=== PATIENT | female | born 1950 | race American Indian/Alaskan Native ===

== ENCOUNTER 2018-08-08 17:09 | Emergency (ER) | payer MEDICARE, OTHER ==
[~2018-08-08] VITALS: Ht 157.5 cm; Wt 86.2 kg
[~2018-08-08 17:09] MED LIST: AMOXICILLIN500 MG PO; CALCIUM + VITA1 EACH PO; CLARITHROMYCIN500 MG PO; CRESTOR10 MG PO; FLUTICASONE PRO16 GM NAS; HYDROCHLOROTH12.5 M1 PO; LISINOPRIL40 MG PO; MAGNESIUM OXID400 MG PO; METOPROLOL TART25 MG PO; NAPROSYN500 MG PO; NORCO 5-325 TA1 EACH PO; OMEPRAZOLE20 MG PO; OXYCODONE HCL5 MG PO; PERCOCET 7.5-31 EACH PO; PROMETHAZINE HC25 M1 PO; PROTONIX40 MG PO
[2018-08-08] MEDS ORDERED: EXCEDRIN EXTRA1 EAC1 PO (17:25)
[2018-08-08] MEDS ORDERED: ANECREAM5 GM TOP (17:54)
== END 2018-08-08 18:00 | disposition home or self-care (01) ==
LOC: ED 17:09
DX: K60.2 Anal fissure, unspecified (principal); I10 Essential (primary) hypertension; Z90.49 Acquired absence of other specified parts of digestive tract; Z90.710 Acquired absence of both cervix and uterus; Z88.6 Allergy status to analgesic agent; Z79.82 Long term (current) use of aspirin; Z79.899 Other long term (current) drug therapy
CPT/HCPCS: 99283

== ENCOUNTER 2019-09-17 07:48 | Day surgery (SDC) | payer MEDICARE, OTHER ==
[~2019-09-17 07:48] MED LIST changes: +ANECREAM5 GM TOP; +ANTI-ITCH28 G2 GT; +DOK100 MG PO; +EXCEDRIN EXTRA1 EAC1 PO; +ULTRAM50 MG PO; +VISTARIL25 MG PO
[2019-09-17] MEDS ORDERED: NORCO 5-325 TA1 EACH PO (08:13)
--- NOTE | 2019-09-17 09:49 | NUR ---
09/17/19 0949 Nora Sorensen 5767-PATIENT ARRIVED TO PACU ON 2L NC LAYING LEFT LATERAL. DROWSY AROUSES TO VERBAL STIMULI ABLE TO REPOSTION SELF ON BACK ABDOMEN SOFT. PATIENT DOZES BACK TO SLEEP. RR EVEN. IVF INFUSING.
--- NOTE | 2019-09-17 10:39 | NUR ---
PT IS BACK TO DS FROM PACU. SHE IS BROUGHT OVER TO WAKE UP A LITTLE MORE BEFORE GOING HOME. SPOUSE IS AT THE BEDSIDE. CALL LIGHT WITHIN REACH. NO ADDITIONAL NEEDS.
--- NOTE | 2019-09-17 12:30 | NUR ---
1200 PT UP TO BATHROOM AND REPORTS VOIDING. 1215 VSS. DC INSTRUCTIONS GIVEN AND PT READY FOR DC. FAMILY DC IN WC ALONG WITH PT IN WC. PAPERWORK GIVEN ALL QUESTIONS ANSWERED.
--- NOTE | 2019-09-18 08:34 | OR ---
[facility] [address], [place] [address] Signed DATE OF OPERATION: 09/17/2019 SURGEON: Aysha Burroughs MD PREOPERATIVE DIAGNOSES: 1. Anal pain with rectal bleeding. 2. Left lateral rectal/anal mass. 3. CEA level 9.80. POSTOPERATIVE DIAGNOSES: 1. Left lateral ulcerated rectal mass from 1st hospital fold down to top of the anal canal. 2. 4 mm mid proximal rectal polyps x2 at 10 cm. 3. Qiwaigr-of-ulebhssv sigmoid diverticulosis. PROCEDURE: Colonoscopy with hot biopsy. ESTIMATED BLOOD LOSS: Minimal. INDICATIONS: Herlinda is a 69-year-old female, who was asked to see me in consultation. She said over last seven months starting in March 2019, she has been having anal pain and rectal bleeding. She said it is particularly concerning with bowel movements. She had been to her primary care provider and tried various conservative measures including ointments, hydrocortisone cream, preparation H, tucks, and so forth. She also felt like something was coming out of the anal canal during bowel movements. When her symptoms did improve, she was asked to see me in consultation for evaluation and colonoscopy. She told me she has never had a previous colonoscopy. To her knowledge, no one in the family has any colon cancer or polyps. With her and our medical writer in the office, we did a rectal exam. On the outside, things look fine, but I could easily palpate a large ulcerated rectal mass in the left lateral position. It is just at the top of the anal canal and I can just get my finger to the top of the rectal mass. Of course, it was friable and bled easily in the office. It does not feel fixed to the underlying structures and/or sphincter muscles. She could not tolerate any anoscopy in the office due the pain. I had explained this to Herlinda and her . I gave them a booklet on colonoscopy. We looked at colonoscopy in detail. She understands the nature of the test along with its risks including, but not limited to gas bloating, crampy abdominal pain, bleeding, perforation requiring surgery, and missed diagnosis. She understands Electronically Signed By: AYSHA BURROUGHS MD 09/18/19 0834 PATIENT NAME: HERLINDA RUBIN JOSE CRUZ OPERATIVE REPORT DATE OF : 54 REPORT #: [id number] PHYSICIAN: AYSHA BURROUGHS MD PCP: PAU VILLANUEVA REPORT IS CONFIDENTIAL AND NOT TO BE RELEASED WITHOUT AUTHORIZATION [facility] [address] [place] [id number] Signed the need to obtain pictures and biopsies of the rectal mass as well as rule out any synchronous lesions. In the meantime, we sent her CEA level and it came back high at 9.80. A CT scan of chest, abdomen, and pelvis is pending. She presents today for her colonoscopy. She is well aware of the need for IV conscious sedation. She and her had expressed understanding and wished to proceed. PROCEDURE NOTE: Herlinda was taken into our endoscopy suite and placed in the left lateral decubitus position. She was given a total of 10 mg of Versed and 175 mcg of fentanyl to cover the case. Of course, she had some pain with palpation of the left lateral rectal mass. Again, I do not perceive that it is attached to underlying structures. The adult colonoscope had been introduced and advanced under direct visualization of the camera without difficulty. She had good sphincter tone on digital rectal exam. Her prep was good. We easily reached the appendiceal orifice and the cecum itself. We took pictures throughout for photodocumentation. Again, we could easily see the appendiceal orifice and ileocecal valve. The scope was slowly withdrawn. We did find diverticula in the sigmoid colon. They were ulcwmyi-lh-imzkuacn in size, wzbchqr-ij-ckpmzwxy in number, and scattered about. There were two small 4 mm polyps near the mid upper rectum at around 10 cm. There were easily removed with a hot biopsy forceps. We retroflexed the scope and we can see the mass underneath the 1st hospital fold headed down to the anus itself. We then brought the scope back and we took multiple cold biopsies of the mass for pathologic review. Of course, it is quite friable and bled easily. The area was irrigated and suctioned out until clear. After this, the gas was suctioned out and the colonoscope removed. Herlinda tolerated the procedure quite well. RECOMMENDATIONS: I will see Herlinda back in my office in 7 to 10 days to review her results. In the meantime, we are going to order her CT scan of the chest, abdomen and pelvis. MD TIGRE Prince/FELICIANOL /[id number] cc: Pau Villanueva Electronically Signed By: AYSHA BURROUGHS MD 09/18/19 0834 PATIENT NAME: HERLINDA RUBIN [facility] OPERATIVE REPORT DATE OF : 54 REPORT #: [id number] PHYSICIAN: AYSHA BURROUGHS MD PCP: PAU VILLANUEVA REPORT IS CONFIDENTIAL AND NOT TO BE RELEASED WITHOUT AUTHORIZATION [facility] [address] [place] [address] [place], [place] [address] Signed Aysha Burroughs MD Copies: PAU VILLANUEVA ANDREW L MD ~ Electronically Signed By: AYSHA BURROUGHS MD 09/18/19 0834 PATIENT NAME: HERLINDA RUBIN JOSE CRUZ OPERATIVE REPORT DATE OF : 54 REPORT #: [id number] PHYSICIAN: AYSHA BURROUGHS MD PCP: PAU VILLANUEVA REPORT IS CONFIDENTIAL AND NOT TO BE RELEASED WITHOUT AUTHORIZATION
--- NOTE | 2019-09-19 09:22 | PATH ---
[facility] [address], [place] [address] Signed SPECIMEN(S): A RECTAL POLYP AT 10 CM SPECIMEN(S): B RECTAL MASS SPECIMEN SOURCE: A. RECTAL POLYP AT 10 CM B. RECTAL MASS CLINICAL HISTORY: Anal pain, anal mass. Post: Rectal mass, diverticulosis, polyps. MICROSCOPIC DESCRIPTION: Histologic sections of all submitted blocks are examined by light microscopy. These findings, together with the gross examination, support the pathologic diagnosis. FINAL PATHOLOGIC DIAGNOSIS: A. Rectum, polyp at 10 cm, polypectomy: - Fragments of tubular adenoma. - Negative for high-grade dysplasia or malignancy. B. Rectum, mass, biopsy: - Invasive moderately differentiated adenocarcinoma. - See comment. COMMENT: Mismatch repair (MMR) testing by IHC has been ordered and will be reported in an addendum. BRAF mutation testing may not be indicated in the absence of metastatic disease and has not been ordered. If testing is desired, please contact [facility] with prior authorization if applicable. The results were discussed with Dr. Araujo on 09/18/2019. As part of [facility]' Quality Improvement Program, this case was reviewed by another member of our pathology staff. NAL:NRT:cml:C1NR GROSS DESCRIPTION: Two specimens are received in two containers, labeled "TC." A. The specimen, labeled "TC,1," and designated on the requisition "rectal polyp at 10 cm," is received in formalin and consists of two bennett soft tissue fragments that measure 0.3 cm in greatest dimension. The specimen is entirely submitted in cassette (A1). B. The specimen, labeled "TC, 2," and designated on the requisition "rectal PATIENT NAME: MILO RUBIN PATHOLOGY DATE OF : 54 REPORT #: [id number] PHYSICIAN: SUELLEN CARBONE PCP: VEENA VILLANUEVA REPORT IS CONFIDENTIAL AND NOT TO BE RELEASED WITHOUT AUTHORIZATION [facility] [address] [address] Signed mass," is received in formalin and consists of multiple bennett-red soft tissue fragments that measure 0.4 cm in greatest dimension. The specimen is entirely submitted in cassette (B1). AT (under the direct supervision of a pathologist) The Gross Description was prepared using a voice recognition system. The report was reviewed for accuracy; however, sound-alike word errors, addition and/or deletions may occur. If there is any question about this report, please contact Client Services. PERFORMING LABORATORY: The technical component was performed by [facility], [address] [place] [address] (Predatory Animal Trapper: Virginie Biggs MD; CLIA# [id number]). [facility] [address] [place] [id number] (CLIA# [id number]). Diagnostician: Dionne Patricio MD Pathologist Electronically Signed 09/19/2019 Copies: ~ PATIENT NAME: MILO RUBIN PATHOLOGY DATE OF : 54 REPORT #: [id number] PHYSICIAN: SUELLEN CARBONE PCP: VEENA VILLANUEVA REPORT IS CONFIDENTIAL AND NOT TO BE RELEASED WITHOUT AUTHORIZATION
== END 2019-09-17 12:15 | disposition home or self-care (01) ==
LOC: DS 07:48 → OPS 07:48 → DS 09:00 → OPS 09:00
PROVIDERS: Colon & Rectal Surgery
PROC: 0DBP8ZZ Excision of Rectum, Via Natural or Artificial Opening Endoscopic (ICD-10-PCS; principal; 2019-09-17 09:00)
DX: C20 Malignant neoplasm of rectum (principal); K57.30 Diverticulosis of large intestine without perforation or abscess without bleeding; K62.6 Ulcer of anus and rectum; I12.9 Hypertensive chronic kidney disease with stage 1 through stage 4 chronic kidney disease, or unspecified chronic kidney disease; N18.3 Chronic kidney disease, stage 3 (moderate); E78.5 Hyperlipidemia, unspecified; K21.9 Gastro-esophageal reflux disease without esophagitis; E66.01 Morbid (severe) obesity due to excess calories; Z88.6 Allergy status to analgesic agent; Z91.048 Other nonmedicinal substance allergy status; Z79.82 Long term (current) use of aspirin; Z79.899 Other long term (current) drug therapy; Z68.34 Body mass index [BMI] 34.0-34.9, adult
CPT/HCPCS: 99153; G0500; J2250; J3010; J7121

== ENCOUNTER 2020-02-02 15:02 | Emergency (ER) | payer MEDICARE, OTHER ==
[~2020-02-02] VITALS: Ht 157.5 cm; Wt 71.2 kg
--- OUTSIDE RECORDS SUMMARY | ~2020-02-02 | XMS | Encounter Summary ---
Demographics + + + | Address | [address] | | | [place] [address] | + + + | Home Phone | | + + + | Preferred Language | Unknown | + + + | Marital Status | Single | + + + | Pentecostalism Affiliation | 1041 | + + + | Race | Unknown | + + + | Ethnic Group | Unknown | + + + Author + + + | Author | [facility] | | | and [place]agarana | + + + | Organization | [facility] | | | and [place] | + + + | Address | Unknown | + + + | Phone | Unavailable | + + + Support + + +---------+ + | Name | Relationship | Address | Phone | + + +---------+ + | Tonio Nichols | ECON | Unknown | | + + +---------+ + | Cristina Medeiros | ECON | Unknown | | + + +---------+ + Care Team Providers + +------+ + | Care Ship Wirer Name | Role | Phone | + +------+ + | Juvenal Delgado PA-C | PCP | | + +------+ + Reason for Visit + + + | Reason | Comments | + + + | Care Coordination | Oncology Nurse Navigation | + + + Encounter Details +--------+ + + + + | Date | Type | Department | Care Team | Description | +--------+ + + + + | 10/15/ | Navigation | [facility] | Valery Allred | | | 2020 | Services | HEMATOLOGY AND | CHELI [facility] | | | | | ONCOLOGY [address] | | | | | | [address] | | | | | | [place] | | | | | | [address] | | | | | | [phone] | | | +--------+ + + + + Social History + +-------+ +--------+------+ | Tobacco Use | Types | Packs/Day | Years | Date | | | | | Used | | + +-------+ +--------+------+ | Current Every Day | | | | | | Smoker | | | | | + +-------+ +--------+------+ + +---+---+---+ | Smokeless Tobacco: | | | | | Never Used | | | | + +---+---+---+ + + +---------+ + | Alcohol Use | Drinks/Week | oz/Week | Comments | + + +---------+ + | Not Currently | | | | + + +---------+ + + + + | Sex Assigned at | Date Recorded | | | | + + + | Not on file | | + + + documented as of this encounter Progress Valery Shea RN - 10/16/2019 2:10 PM PDTInitial Navigation Consult 10/16/2019 Background/ Assessment: Herlinda is a 69 y.o. year old female with diagnosis of rectal cance r. Met with Herlinda and her Tonio today to introduce myself and my role as oncology nurse navigator. Current living situation: pt lives with her spouse in [place], [place] area. Emotional assessment: patient is tearful today, states this is mostly related to her discom fort from her recent rectal exam. Provided her today with resource material on colorectal cancer ([employer] Answers Colorectal Can cer by [employer].net), treatment pathway, [facility] newsletter and community res ources available, as well as local support group information. Education: Intro to ONN role and support services available, reinforcement of education ma terials, staging studies, and treatment plan. Patient was able to accurately verbalize unde rstanding of the education given today. Treatment, Treatment team: Surgeon is Dr Yun, medical oncologist Dr Huston, radi ation oncologist Dr Richard Calderon, despatch clerk Valery Allred, RN, OCN. Support systems: spouse. Patients urgent care technician is Tonio. Barriers and needs: education. ONN plan: Follow up with coding coordinator at the [facility] to determine if MRI is authorized. Add patient to tumor conference discussion after MRI has been completed. All questions were answered to her satisfaction. Provided patient with my direct contact i nformation and encouraged her to call should she have questions or further navigation needs. VIRGINIA CouchN, RN, OCN Colorectal Oncology Nurse Navigator documented in thi s encounter Plan of Treatment Not on filedocumented as of this encounter Visit Diagnoses Not on filedocumented in this encounter"
--- OUTSIDE RECORDS SUMMARY | ~2020-02-02 | XMS | Encounter Summary ---
Demographics + + + | Address | [address] | | | [place] [address] | + + + | Home Phone | | + + + | Preferred Language | Unknown | + + + | Marital Status | Single | + + + | Baptist Affiliation | 1041 | + + + | Race | Unknown | + + + | Ethnic Group | Unknown | + + + Author + + + | Author | [facility] | | | and Sagarana | + + + | Organization | [facility] | | | and Sagarana [...] Team Providers + +------+ + | Care Banking Attorney Name | Role | Phone | + +------+ + | Juvenal Delgado PA-C | PCP | | + +------+ + Reason for Visit +--------+--------+ + | Reason | Onset | Comments | | | Date | | +--------+--------+ + | Other | 10/10/ | imaging/prep | | | 2020 | | +--------+--------+ + Encounter Details +--------+ + + + + | Date | Type | Department | Care Team | Description | +--------+ + + + + | 10/10/ | Telephone | [facility] | Chandrika Baumann, | Other (imaging/prep) | | 2020 | | GENERAL SURGERY [address] | Rubber Compounder Mixer | | | | | [address] | | | | | | [place], [place] | | | | | | [address] | | | | | | [phone] | | | +--------+ + + + + Social History + +-------+ +--------+------+ | Tobacco Use | Types | Packs/Day | Years | Date | | | | | Used | | + +-------+ +--------+------+ | Never Assessed | | | | | + +-------+ +--------+------+ + + + | Sex Assigned at | Date Recorded | | | | + + + | Not on file | | + + + documented as of this encounter Miscellaneous Notes Telephone Encounter - Chandrika Baumann, Rubber Compounder Mixer - 10/11/2019 2:[address] aced to patient regarding MRI order and prep for upcoming consultation with Dr. Hurley. I nformed patient that she has an MRI ordered and that prior to consultation she will need to administer 2 fleets enemas for exam. Patient states she will have to call me back after appointment because she is driving. Number to clinic given. Call was ended. documented in this encounter Plan of Treatment Not on filedocumented as of this encounter Visit Diagnoses Not on filedocumented in this encounter"
--- OUTSIDE RECORDS SUMMARY | ~2020-02-02 | XMS | Encounter Summary ---
Demographics + + + | Address | [address] | | | [place] [address] | + + + | Home Phone | | + + + | Preferred Language | Unknown | + + + | Marital Status | Single | + + + | Adventism Affiliation | 1041 | + + + | Race | Unknown | + + + | Ethnic Group | Unknown | + + + Author + + + | Author | [facility] | | | and Sagarana | + + + | Organization | [facility] | | | and Sagarana | [...] Team Providers + +------+ + | Care Hand Tire Trimmer Name | Role | Phone | + +------+ + | Juvenal Delgado PA-C | PCP | | + +------+ + Reason for Visit + +--------+ + | Reason | Onset | Comments | | | Date | | + +--------+ + | Care Coordination | 10/15/ | Oncology Nurse Navigation | | | 2020 | | + +--------+ + Encounter Details +--------+ + + + + | Date | Type | Department | Care Team | Description | +--------+ + + + + | 10/15/ | Telephone | [facility] | Ze Allred | Care Coordination | | 2020 | | HEMATOLOGY AND | R, RN | (Oncology Nurse | | | | ONCOLOGY [address] | | Navigation) | | | | [address] | | | | | | [place] | | | | | | [address] | | | | | | [phone] | | | +--------+ + + + [...] this encounter Miscellaneous Notes Telephone Encounter - Ze Allred, RN - 10/16/2019 3:52 PM PDTCR-ONN contacted ulices cotter to let her know I spoke with authorization department and they informed that Xuan sanchez has now authorized the MRI. Pt provided with central scheduling number to get that schedu led, encouraged her to call me should she have any difficulties, to which she expressed grat itude and understanding. ZE ALLRED BSN, RN, OCN Colorectal Oncology Nurse Navigator documented in thi s encounter Plan of Treatment Not on filedocumented as of this encounter Visit Diagnoses Not on filedocumented in this encounter"
--- OUTSIDE RECORDS SUMMARY | ~2020-02-02 | XMS | Encounter Summary ---
Demographics + + + | Address | [address] | | | [place] [address] | + + + | Home Phone | | + + + | Preferred Language | Unknown | + + + | Marital Status | Single | + + + | Muslim Affiliation | 1041 | + + + | Race | Unknown | + + + | Ethnic Group | Unknown | + + + Author + + + | Author | [facility] | | | and Sagarana | + + + | Organization | [facility] | | | and Sagarana [...] Team Providers + +------+ + | Care Coordinator Hotels Name | Role | Phone | + +------+ + | Pau Salvador PA-C | PCP | | + +------+ + Encounter Details +--------+ + + + + | Date | Type | Department | Care Team | Description | +--------+ + + + + | 11/12/ | Documentati | [facility] | Ibis, Chandrika Ellis, | | | 2019 | on | GENERAL SURGERY [address] | Database Marketing Manager | | | | | [address] | | | | | | [place], [place] | | | | | | [address] | | | | | | [phone] | | | +--------+ + + + [...] + documented as of this encounter Progress Chandrika Taylor, Database Marketing Manager - 11/13/2019 4:09 PM PDTNAPRC Letter sent to Dr. Sarmad mccarthy and Dr. Calderon via fax. Fax confirmation received. documented in this encounter Plan of Treatment Not on filedocumented as of this encounter Visit Diagnoses Not on filedocumented in this encounter"
--- OUTSIDE RECORDS SUMMARY | ~2020-02-02 | XMS | Encounter Summary ---
Demographics + + + | Address | [address] | | | [place] [address] | + + + | Home Phone | | + + + | Preferred Language | Unknown | + + + | Marital Status | Single | + + + | Judaism Affiliation | 1041 | + + + | Race | Unknown | + + + | Ethnic Group | Unknown | + + + Author + + + | Author | [facility] | | | and [place] | + + + | Organization | [facility] | | | and [...] Team Providers + +------+ + | Care Security Shift Manager Name | Role | Phone | + +------+ + | Juvenal Delgado PA-C | PCP | | + +------+ + Reason for Visit + +--------+ + | Reason | Onset | Comments | | | Date | | + +--------+ + | Referral | 10/03/ | | | | 2020 | | + +--------+ + | Other | 10/03/ | Returned Call | | | 2019 | | + +--------+ + Encounter Details +--------+ + + + + | Date | Type | Department | Care Team | Description | +--------+ + + + + | 10/03/ | Telephone | [facility] | Dickson Hurley, | Referral; Other | | 2020 | | GENERAL SURGERY [address] | MD [address] | (Returned Call ) | | | | [address] | [address] | | | | | [place], [place] | [place] [address] | | | | | [address] | [phone] | | | | | [phone] | | | +--------+ + + + [...] this encounter Miscellaneous Notes Telephone Encounter - Ramya Tay - 10/10/2019 2:45 PM PDTSpoke with patient and sc heduled her with Dr Hurley on 10/16/2019.Electronically signed by Ramya Tay at 08/2019 2:45 PM PDTTelephone Encounter - Ramya Valladares - 10/10/2019 2:24 PM PDTT eresa, is calling again for Referral and Other (Returned Call ) and would like a call back. Additional Call Details: Requesting call back to schedule from referral. elephone Ramya Swartz - 10/10/2019 11:08 AM PDTTeresa, is returning call for Referr al and Other (Returned Call ) and would like a call back. Additional Call Details: Requesting to speak with Ramya or Aicha regarding scheduling. If the call back is today please call after 3pm elephone Encoun ter - Ramya Tay - 10/07/2019 4:31 PM PDTSpoke with patient and she stated she alre michelle made an appt with Dr Huston at [facility]. She has an appt with Dr Araujo on and will speak with him to determine if she should still see Dr Hurley or if she shou ld see Dr Huston. elephone Encounter - Debra Tyson - 10/04/2019 3:36 PM PDTTeresa, is returning call f or Referral and Other (Returned Call ) and would like a call back. Additional Call Details: Returning Call, can be reached at [phone] elephone Encounter - Nany Shearer I - 10/04/2019 1:37 PM PDTTeresa, is calling regarding Referral and would like a call back. Additional Call Details: Schedule from new referral. Call back on home number listed. Smith paul call back at: [phone] If this is a symptom based call, was patient offered triage? Not Applicable If this is a symptom based call and you were unable to immediately transfer the call to a p michaela distribution supervisor was caller made aware that if at any time she feels it is an emergency they sh ould call 911 or go to the nearest emergency room? not applicable documented in this encounter Plan of Treatment Not on filedocumented as of this encounter Visit Diagnoses Not on filedocumented in this encounter"
--- OUTSIDE RECORDS SUMMARY | ~2020-02-02 | XMS | Encounter Summary ---
Demographics + + + | Address | [address] | | | [place] [address] | + + + | Home Phone | | + + + | Preferred Language | Unknown | + + + | Marital Status | Single | + + + | Mandaeism Affiliation | 1041 | + + + | Race | Unknown | + + + | Ethnic Group | Unknown | + + + Author + + + | Author | [facility] | | | and Sagarana | + + + | Organization | [facility] | | | and Sagarana [...] Team Providers + +------+ + | Care Environmental Systems Coordinator Name | Role | Phone | + +------+ + | Juvenal Delgado PA-C | PCP | | + +------+ + Reason for Referral Diagnostic/Screening (Urgent) +--------+--------+ + + + + | Status | Reason | Specialty | Diagnoses / | Referred By | Referred To | | | | | Procedures | Contact | Contact | +--------+--------+ + + + + | Closed | | Radiology | Diagnoses | [facility] | | | | | Rectal | Surgery | [address] | | | | | cancer (HCC) | [address] | | | | | Procedures | [address] | | | | | MRI Pelvis | [place], | [place], [place] | | | | | wo Contrast | [place] | [address] | | | | | | [address] | Phone: | | | | | | Phone: | [phone] | | | | | | [phone] | Fax: | | | | | | Fax: | [phone] | | | | | | [phone] | | +--------+--------+ + + + + Encounter Details +--------+ + + + + | Date | Type | Department | Care Team | Description | +--------+ + + + + | 10/10/ | Orders Only | [facility] | Valery Allred | Rectal cancer (HCC) | | 2020 | | GENERAL SURGERY [address] | R, RN | | | | | [address] | | | | | | [facility] [place] | | | | | | [address] | | | | | | [phone] | | | +--------+ + + + [...] + + documented as of this encounter Plan of Treatment Not on filedocumented as of this encounter Results MRI Pelvis wo Contrast (10/28/2019 10:46 AM PDT) + + | Specimen | + + | | + + + + + | Impressions | Performed At | + + + | MRI rectal cancer T category is: T4. There appears to be | [facility] | | involvement of the levator ani musculature. Maximum EMD of invasion | | | is: 12 mm Minimum tumor to MRF distance is: 0 mm Low rectal tumor | | | component: Yes Mesorectal nodes/tumor deposits: Suspicious. Please | | | note that there is a prominent lymph node seen posterior to the left | | | external iliac vessels measuring 8 mm x 7 mm in size, potentially | | | reflecting metastatic disease, but difficult to confirm on the | | | current examination. EMVI: Positive Extramesorectal nodes: | | | Suspicious Comment MRI stage: T4. N2. Signed by: Yeimy Ocampo | | Abelardo Buchanan Sign Date/Time: 10/28/2019 11:14 AM | | + + + + + + | Narrative | Performed At | + + + | MRI PELVIS WITHOUT CONTRAST CLINICAL INFORMATION: Rectal | [facility] | | cancer staging. COMPARISON: None PROCEDURE: Image quality is | | | Adequate. Magnet: 1.5T and sequences . Multiplanar, multisequence | | | MRI of the pelvis without contrast utilizing high resolution T2 and | | | diffusion weighted imaging. FINDINGS: TUMOR LOCATION AND | | | FEATURES: Tumor Location (from anal verge): Mid and lower rectum | | | Anal verge to distal tumor margin: 2.9 cm. Tumor at or below the | | | puborectalis sling: Uncertain Distance of lowest extent of tumor from | | | top of anal sphincter: 0 cm. Relationship to the anterior peritoneal | | | reflection: Below. Craniocaudal length of the tumor: 6.1 cm. Clock | | | face of tumor: 12 o' clock to 12 o' clock | | | Polypoid/Annular/Semi-annular: Annular Mucinous: No EXTRAMURAL | | | DEPTH OF INVASION AND MR T-CATEGORY: Extramural depth of invasion | | | (Use 0mm for T1 or T2 tumour): 12 mm. T category: T4 There appears to | | | be invasion of the levator ani along the left and posterior aspect. | | | For low rectal tumors (maximum tumor depth at or below the | | | puborectalis sling): No definite extension of the tumor seen below | | | the level of the puborectalis. RELATIONSHIP OF THE TUMOR TO | | | MESORECTAL FASCIA (MRF) Shortest distance of the definitive tumour | | | border to the MRF is: 0 mm at approximately 4 o'clock. Are there any | | | tumour spiculations closer to the MRF? No EXTRAMURAL VENOUS | | | INVASION Extramural Venous Invasion (EMVI): Positive. MESORECTAL | | | LYMPH NODES AND TUMOUR DEPOSITS Any suspicious mesorectal lymph | | | nodes/tumor deposits: Yes. The abnormal lymph nodes appear to be | | | located at, and above the level of the tumor. For example Largest | | | lymph node is located above the level of the tumor at 5 o'clock | | | position on series 7, image 15 measuring 1.7 cm x 1.3 cm. Is the MONTRELL | | | node station in the field of view: No EXTRAMESORECTAL LYMPH NODES | | | Any suspicious extramesorectal lymph nodes: Yes. Extra mesorectal | | | lymph node seen at the level of the mid rectum, at 3 o'clock | | | position, abutting the left lateral pelvic sidewall on series 7, | | | image 22 measuring 1 cm x 0.9 cm. There is a prominent lymph node | | | seen posterior to the left external iliac vessels on series 7, image | | | 13 measuring 8 mm x 7 mm in size. OTHER FINDINGS: Urinary bladder | | | appears to be decompressed. No dilated bowel loops seen. Colonic | | | diverticulosis noted. | | + + + + + | Procedure Note | + + | David, Rad Results In 10/28/2019 11:17 AM PDT | | MRI PELVIS WITHOUT CONTRAST | | | | CLINICAL INFORMATION: | | Rectal cancer staging. | | | | COMPARISON: | | None | | | | PROCEDURE: | | Image quality is Adequate. | | Magnet: 1.5T and sequences . | | Multiplanar, multisequence MRI of the pelvis without contrast utilizing | | high resolution T2 and diffusion weighted imaging. | | | | FINDINGS: | | TUMOR LOCATION AND FEATURES: | | Tumor Location (from anal verge): Mid and lower rectum | | Anal verge to distal tumor margin: 2.9 cm. | | Tumor at or below the puborectalis sling: Uncertain | | Distance of lowest extent of tumor from top of anal sphincter: 0 cm. | | Relationship to the anterior peritoneal reflection: Below. | | Craniocaudal length of the tumor: 6.1 cm. | | Clock face of tumor: 12 o' clock to 12 o' clock | | Polypoid/Annular/Semi-annular: Annular | | Mucinous: No | | | | EXTRAMURAL DEPTH OF INVASION AND MR T-CATEGORY: | | Extramural depth of invasion (Use 0mm for T1 or T2 tumour): 12 mm. | | T category: T4 There appears to be invasion of the levator ani along | | the left and posterior aspect. | | For low rectal tumors (maximum tumor depth at or below the puborectalis | | sling): No definite extension of the tumor seen below the level of the | | puborectalis. | | | | RELATIONSHIP OF THE TUMOR TO MESORECTAL FASCIA (MRF) | | Shortest distance of the definitive tumour border to the MRF is: 0 mm | | at approximately 4 o'clock. | | Are there any tumour spiculations closer to the MRF? No | | | | EXTRAMURAL VENOUS INVASION | | Extramural Venous Invasion (EMVI): Positive. | | | | MESORECTAL LYMPH NODES AND TUMOUR DEPOSITS | | Any suspicious mesorectal lymph nodes/tumor deposits: Yes. The abnormal | | lymph nodes appear to be located at, and above the level of the tumor. | | For example | | Largest lymph node is located above the level of the tumor at 5 o'clock | | position on series 7, image 15 measuring 1.7 cm x 1.3 cm. | | Is the MONTRELL node station in the field of view: No | | | | EXTRAMESORECTAL LYMPH NODES | | Any suspicious extramesorectal lymph nodes: Yes. | | Extra mesorectal lymph node seen at the level of the mid rectum, at 3 | | o'clock position, abutting the left lateral pelvic sidewall on series | | 7, image 22 measuring 1 cm x 0.9 cm. | | There is a prominent lymph node seen posterior to the left external | | iliac vessels on series 7, image 13 measuring 8 mm x 7 mm in size. | | | | OTHER FINDINGS: | | Urinary bladder appears to be decompressed. No dilated bowel loops | | seen. Colonic diverticulosis noted. | | | | IMPRESSION: | | MRI rectal cancer T category is: T4. There appears to be involvement | | of the levator ani musculature. | | Maximum EMD of invasion is: 12 mm | | Minimum tumor to MRF distance is: 0 mm | | Low rectal tumor component: Yes | | Mesorectal nodes/tumor deposits: Suspicious. Please note that there is | | a prominent lymph node seen posterior to the left external iliac | | vessels measuring 8 mm x 7 mm in size, potentially reflecting | | metastatic disease, but difficult to confirm on the current examination. | | EMVI: Positive | | Extramesorectal nodes: Suspicious Comment | | MRI stage: T4. N2. | | | | | | | | Signed by: Chanel Ocampo, Abelardo | | Sign Date/Time: 10/28/2019 11:14 AM | + + + +---------+ + + | Performing | Address | City/State/Zipcode | Phone Number | | Organization | | | | + +---------+ + + | [facility] | | | | + +---------+ + + documented in this encounter Visit Diagnoses + + | Diagnosis | + + | Rectal cancer (HCC) Malignant neoplasm of rectum | + + documented in this encounter"
--- OUTSIDE RECORDS SUMMARY | ~2020-02-02 | XMS | Encounter Summary ---
Demographics + + + | Address | [address] | | | [place] [address] | + + + | Home Phone | | + + + | Preferred Language | Unknown | + + + | Marital Status | Single | + + + | Temple Affiliation | 1041 | + + + | Race | Unknown | + + + | Ethnic Group | Unknown | + + + Author + + + | Author | [facility] | | | and Sagarana | + + + | Organization | [facility] | | | and Sagarana [...] Team Providers + +------+ + | Care Service Center Representative Name | Role | Phone | + +------+ + | Juvenal Delgado PA-C | PCP | | + +------+ + Encounter Details +--------+ + + + + | Date | Type | Department | Care Team | Description | +--------+ + + + + | 02/14/ | Abstract | [facility] | Cata Valdes | | | 2012 | | NEPHROLOGY [address] | M, DO [address] | | | | | [address] | [address] [place] | | | | | [place], [place] | [place] [address] | | | | | [address] | [phone] | | | | | [phone] | | | +--------+ + + + [...]
--- OUTSIDE RECORDS SUMMARY | ~2020-02-02 | XMS | Clinical Summary ---
Demographics + + + | Address | [address] | | | [place] [address] | + + + | Home Phone | | + + + | Preferred Language | Unknown | + + + | Marital Status | Single | + + + | Christian Affiliation | 1041 | + + + | Race | Unknown | + + + | Ethnic Group | Unknown | + + + Author + + + | Author | [facility] | | | and Sagarana | + + + | Organization | [facility] | | | and Sagarana [...] Team Providers + +------+ + | Care Centrifugal Drier Operator Name | Role | Phone | + +------+ + | Pau Salvador PA-C | PCP | | + +------+ + Allergies + + + + + + | Active Allergy | Reactions | Severity | Noted | Comments | | | | | Date | | + + + + + + | Adhesive & Tape | Sensitivity | | 09/09/19 | | | | | | 16 | | + + + + + + Medications + + + +---------+------+------+-------+ | Medication | Sig | Dispensed | Refills | Star | End | Statu | | | | | | t | Date | s | | | | | | Date | | | + + + +---------+------+------+-------+ | metoprolol | Take 25 mg by mouth | | 0 | | | Activ | | tartrate (LOPRESSOR) | 2 times daily. | | | | | e | | 25 mg tablet | | | | | | | + + + +---------+------+------+-------+ | lisinopril | Take 40 mg by mouth | | 0 | | | Activ | | (PRINIVIL,ZESTRIL) | Daily. | | | | | e | | 40 MG tablet | | | | | | | + + + +---------+------+------+-------+ | | Take 25 mg by mouth | | 0 | | | Activ | | hydrochlorothiazide | Daily. | | | | | e | | 25 mg tablet | | | | | | | + + + +---------+------+------+-------+ | omeprazole | Take 40 mg by mouth. | | 0 | | | Activ | | (PRILOSEC) 40 MG | | | | | | e | | capsule | | | | | | | + + + +---------+------+------+-------+ | oxyCODONE | Take 5 mg by mouth | | 0 | | | Activ | | (ROXICODONE) 5 mg | every 4 hours as | | | | | e | | tablet | needed. | | | | | | + + + +---------+------+------+-------+ | lisinopril | Take 5 mg by mouth. | | 0 | | | Activ | | (RAMIREZ MORRISSEY) | | | | | | e | | 5 mg tablet | | | | | | | + + + +---------+------+------+-------+ Active Problems + + + | Problem | Noted Date | + + + | Rectal cancer | 10/11/2019 | + + + Encounters +--------+ + + + + | Date | Type | Specialty | Care Team | Description | +--------+ + + + + | 11/12/ | Documentati | General Surgery | Chandrika Baumann, | | | 2019 | on | | Weight Control Engineer | | +--------+ + + + + from Last 3 Months Family History + +------+ + + | Relation | Name | Status | Comments | + +------+ + + | Father | | | | + +------+ + + | Mother | | | | + +------+ + + Social History + +-------+ +--------+------+ [...] on file | | + + + Last Filed Vital Signs + + + + + | Vital Sign | Reading | Time Taken | Comments | + + + + + | Blood Pressure | 120/78 | 10/16/2019 11:14 AM | | | | | PDT | | + + + + + | Pulse | 88 | 10/16/2019 11:14 AM | | | | | PDT | | + + + + + | Temperature | 36.6 C (97.9 F) | 10/16/2019 11:14 AM | | | | | PDT | | + + + + + | Respiratory Rate | 16 | 10/16/2019 11:14 AM | | | | | PDT | | + + + + + | Oxygen Saturation | - | - | | + + + + + | Inhaled Oxygen | - | - | | | Concentration | | | | + + + + + | Weight | 72.1 kg (159 lb) | 10/16/2019 11:14 AM | | | | | PDT | | + + + + + | Height | 157.5 cm (5' 2") | 10/16/2019 11:14 AM | | | | | PDT | | + + + + + | Body Mass Index | 29.08 | 10/16/2019 11:14 AM | | | | | PDT | | + + + + + Plan of Treatment + + + + + | Health Maintenance | Due Date | Last | Comments | | | | Done | | + + + + + | Hepatitis C | | | | | Screening | 2 | | | + + + + + | Medication | | | | | Management | 2 | | | + + + + + | Vaccine: | | 03/02/20 | | | Dtap/Tdap/Td (1 - | 1 | 17, | | | Tdap) | | 06/29/20 | | | | | 06, | | | | | 05/29/19 | | | | | 96 | | + + + + + | Colorectal Cancer | | | | | Screening | 2 | | | | (Colonoscopy) | | | | + + + + + | Vaccine: Zoster (1 | | | | | of 2) | 2 | | | + + + + + | Breast Cancer | | | | | Screening | 7 | | | + + + + + | Med Mgmt: Cr | | 02/07/20 | | | | 4 | 13, | | | | | 02/07/20 | | | | | 13, | | | | | 02/04/20 | | | | | 13, | | | | | Addition | | | | | al | | | | | history | | | | | exists | | + + + + + | Med Mgmt: K | | 02/07/20 | | | | 4 | 13, | | | | | 02/04/20 | | | | | 13, | | | | | 02/03/20 | | | | | 13, | | | | | Addition | | | | | al | | | | | history | | | | | exists | | + + + + + | Med Mgmt: Na | | 02/07/20 | | | | 4 | 13, | | | | | 02/04/20 | | | | | 13, | | | | | 02/03/20 | | | | | 13, | | | | | Addition | | | | | al | | | | | history | | | | | exists | | + + + + + | Vaccine: | | | | | Pneumococcal 65+ (1 | 7 | | | | of 1 - PPSV23) | | | | + + + + + | Adult Annual | | | | | Wellness Visit | 0 | | | + + + + + | Vaccine: Influenza | | 03/20/20 | | | (#1) | 0 | 18, | | | | | 06/15/20 | | | | | 16, | | | | | 04/03/20 | | | | | 15, | | | | | Addition | | | | | al | | | | | history | | | | | exists | | + + + + + Results Not on filefrom Last 3 Months Insurance + +--------+ +--------+ +---------+--------+ | Payer | Benefi | Subscriber | Effect | Phone | Address | Type | | | t Plan | ID | jh | | | | | | / | | Dates | | | | | | Group | | | | | | + +--------+ +--------+ +---------+--------+ | MEDICARE | MEDICA | [id number] | 01/08/20 | [phone] | | Medica | | | RE | | 17-Pre | 5 | | re | | | PART A | | sent | | | | | | AND B | | | | | | + +--------+ +--------+ +---------+--------+ | MEDICARE | MEDICA | [id number] | 01/08/20 | [phone] | | Medica | | | RE | | 17-Pre | 5 | | re | | | PART A | | sent | | | | | | AND B | | | | | | + +--------+ +--------+ +---------+--------+ | [facility] [facility] | [employer] | [id number] | | | | Indemn | | SERVICE | YELLOW | | 013-Pr | | | ity | | | HAWK | | esent | | | | + +--------+ +--------+ +---------+--------+ + +--------+ +--------+ + + | Guarantor Name | Accoun | Relation to | Date | Phone | Billing Address | | | t Type | Patient | of | | | | | | | | | | + +--------+ +--------+ + + | Herlinda Hernandez | Person | Self | [birth year] | [address] | | | al/Fam | | 1949 | [phone] | [place] [address] | | | oscar | | | 1 (Home) | | + +--------+ +--------+ + + | Herlinda Hernandez | Person | Self | [birth year] | [address] | | | al/Fam | | 1949 | [phone] | [place] [address] | | | oscar | | | 1 (Home) | | + +--------+ +--------+ + + Advance Directives + + + + + | Type | Date Recorded | Patient | Explanation | | | | Internal Medicine Doctor | | + + + + + | Power of | | | | | Raw Silk Grader | | | | + + + + + | Advance | | | | | Directive | | | | + + + + +
--- OUTSIDE RECORDS SUMMARY | ~2020-02-02 | XMS | Encounter Summary ---
Demographics + + + | Address | [address] | | | [place] [address] | + + + | Home Phone | | + + + | Preferred Language | Unknown | + + + | Marital Status | Single | + + + | Yarsanism Affiliation | [id number] | + + + | Race | Unknown | + + + | Ethnic Group | Unknown | + + + Author + + + | Author | [facility] | | | and Sagarana | + + + | Organization | [facility] | | | and [...] Team Providers + +------+ + | Care Skein Washer Name | Role | Phone | + +------+ + | Juvenal Delgado PA-C | PCP | | + +------+ + Reason for Visit Evaluate & Treat (Urgent) + +--------+ + + + + | Status | Reason | Specialty | Diagnoses / | Referred By | Referred To | | | | | Procedures | Contact | Contact | + +--------+ + + + + | Authorized | | Colon and | Diagnoses | Van, | Mei, | | | | Rectal | Rectal | Victor Manuel Ash, | Dickson Liao MD | | | | Surgery / | cancer | [address] | | | General | | [address] | [address] | | | | Surgery | | [place], [address] | | | | | | [place] | [place], [place] | | | | | | [address] | [address] Phone: | | | | | | Phone: | [phone] | | | | | | [phone] | Fax: | | | | | | Fax: | [phone] | | | | | | [phone] | | + +--------+ + + + + Encounter Details +--------+---------+ + + + | Date | Type | Department | Care Team | Description | +--------+---------+ + + + | 10/15/ | Office | [facility] | Dickson Hurley, | Rectal cancer (HCC) | | 2020 | Visit | GENERAL SURGERY [address] | MD [address] | (Primary Dx) | | | | [address] | [address] | | | | | [place], [place] | [place] [address] | | | | | [address] | [phone] | | | | | [phone] | | | +--------+---------+ + + + Social History + +-------+ [...] + + documented as of this encounter Last Filed Vital Signs + + + [...] | | + + + + + documented in this encounter Progress Notes Dickson Hurley MD - 10/16/2019 11:15 AM PDTFormatting of this note might be different f rom the original. Service: Colorectal Surgery History & Physical ID: Herlinda Hernandez; DATE OF VISIT: 10/16/2019 History Obtained From: History obtained from the patient. CHIEF COMPLAINT: New patient presents for consultation regarding rectal cancer. HISTORY OF PRESENT ILLNESS The patient is a 69 y.o. female who presents with distal rectal cancer. Started noticing a lump in her anus back in March. She applied cfkt-kid-duzyibg topical medications on it and then sought medical attention and then finally she was sent for evaluation by Dr. Araujo who was able to palpate a mass in the rectum subsequently underwent a colonoscopy that show ed a left lateral distal rectal mass that biopsy invasive adenocarcinoma. Patient is compla ining of significant pain in her anus with or without defecation and worse also on sitting. This is progressing angle given her a significant quality of life disturbance she is taking minimal pain medications for it. The patient reports that she has significant weight loss she dropped from 237 pounds 151. She reports fatigue. She reports a history of percutaneou s valve procedure that she had few years ago she is not on any blood thinners she says. She has a good exercise tolerance. Denies chest pain or shortness of breath. Incyte: 09/20/2019: Rectal cancer invasive adenocarcinoma. MLH1, MSH2, MSH6, PMS2: intact CT CAP: 09/27/2019 No evidence of metastasis. Post cholecystectomy. Low rectal mass seen. MRI: pending Rubber Thread Spooler needed: no Last colonoscopy: yes Dr. Victor Manuel Araujo 09/2019 Rectal Bleeding:yes Bleeding bright red or dark red: yes Blood on Toilet Paper: yes Blood in Toilet Water: yes Feel rectum is falling out of anus: no Does rectum go back in spontaneously: no Have to push the rectum back in manually: no Ever unable to push rectum back in: no Severe pain around the anus: yes Feel a ripping at the anus with bowel movements: yes Have itching/burning at the anus: no Ever have anal warts: no Have drainage from the anus: no Incontinent to solid stool: no Incontinent to liquid stool: no Incontinent to gas: no trauma that required stitches: no Abdominal pain or cramps: no Family member with colon cancer at age less than 50: no Family member with colon polyps: no Family member with more than 10 colon polyps: no Need antibiotics prior to dental procedure: no Active comorbid conditions include: - obesity - Drugs/Alcohol/Tobacco - substance abuse - tobacco use REVIEW OF SYSTEMS Review of Systems Constitutional: Positive for malaise/fatigue and weight loss. Gastrointestinal: Positive for blood in stool. Rectal pain Psychiatric/Behavioral: Positive for substance abuse. Past Medical History: Diagnosis Date Acute cholecystitis 02/01/2013 Chronic kidney disease, stage III (moderate) Obesity Unspecified essential hypertension Past Surgical History: Procedure Laterality Date CHOLECYSTECTOMY 02/02/2013 open SUPRACERVICAL HYSTERECTOMY Allergies Allergen Reactions Adhesive & Tape Sensitivity (Not in a hospital admission) No family history on file. Social History Tobacco Use Smoking Status Current Every Day Smoker Smokeless Tobacco Never Used Social History Substance and Sexual Activity Alcohol Use Not Currently PHYSICAL EXAM BP 120/78 | Pulse 88 | Temp 36.6 C (97.9 F) | Resp 16 | Ht 1.575 m (5' 2") | Wt 72 .1 kg (159 lb) | BMI 29.08 kg/m Wt. Admission: Weight: 72.1 kg (159 lb) Wt. Current: Weight: 72.1 kg (159 lb) Body mass index is 29.08 kg/m. Physical Exam Vitals signs and nursing note reviewed. Constitutional: Appearance: She is obese. HENT: Head: Atraumatic. Mouth/Throat: Mouth: Mucous membranes are dry. Eyes: Pupils: Pupils are equal, round, and reactive to light. Cardiovascular: Rate and Rhythm: Normal rate. Pulmonary: Effort: Pulmonary effort is normal. Abdominal: General: Abdomen is flat. Palpations: Abdomen is soft. Genitourinary: Skin: General: Skin is warm. Neurological: Mental Status: She is alert and oriented to person, place, and time. Psychiatric: Mood and Affect: Mood normal. Labs: No results for input(s): WBC, HGB, HCT, PLT, MCV in the last 72 hours. Invalid input(s): BANDSPCT No results for input(s): NA, K, CL, CO2, BUN, CREA, CALCIUM, MG, PHOS in the last 72 hours. Date of diagnosis(pathology resulted): 09/20/2019 Pathology read by: Dionne Patricio. Pathology report in MR:yes, I personally reviewed the pathology report. (if outside Pathologist report requested for review by [facility] member)yes Staging CT CAP Complete: yes Staging rectal MRI complete: no, pending MRI read by: pending Synoptic template: CEA Complete: yes 9.8 ASSESSMENT & PLAN This is a 69-year-old lady who presents with a distal rectal adenocarcinoma. This is jus t at the anorectal junction that is very symptomatic with pain and tenderness indicating mos t likely invasion into the sphincter complex. Although her CT scan did not show any evidenc e of distant metastasis but her weight loss is very concerning as well as her elevated CEA. Patient is going to complete work-up with an MRI of her pelvis for local staging. I discus sed the case with the patient and her . [facility]. We will discuss her case in tumor conference. We will be in touch with the patient's oncologist and radiation oncologist in order for us to draw the best plan of manag ement for her. My recommendation would be to start with total neoadjuvant chemoradiation sp ecific details of which are center specific. Once she is completed with her treatment then be evaluating her response with a flexible sigmoidoscopy under sedation. At this point surg ical intervention would be in the form of an abdominoperineal resection and a permanent colo stomy. Dickson Hurley MD 11:15 AM; 10/16/2019 cc: Juvenal Delgado PA-C documented in this encounter Plan of Treatment Not on filedocumented as of this encounter Visit Diagnoses + + | Diagnosis | + + | Rectal cancer (HCC) - Primary Malignant neoplasm of rectum | + + documented in this encounter
--- OUTSIDE RECORDS SUMMARY | ~2020-02-02 | XMS | Encounter Summary ---
Demographics + + + | Address | [address] | | | [place] [address] | + + + | Home Phone | | + + + | Preferred Language | Unknown | + + + | Marital Status | Single | + + + | Holiness Affiliation | [id number] | + + + | Race | Unknown | + + + | Ethnic Group | Unknown | + + + Author + + + | Author | [facility] | | | and Sagarana | + + + | Organization | [facility] | | | and Sagarana | [...] Team Providers + +------+ + | Care Customer Operations Associate Name | Role | Phone | + +------+ + | Juvenal Delgado PA-C | PCP | | + +------+ + Encounter Details +--------+ + + + + | Date | Type | Department | Care Team | Description | +--------+ + + + + | 03/14/ | Abstract | [facility] [place] | Cata Valdes | | | 2012 | | NEPHROLOGY [address] | M, DO [address] | | | | | [address] | [address] [place] | | | | | [place], [place] | [place] [address] | | | | | [address] | [phone] | | | | | [phone] | | | +--------+ + + + [...]
--- OUTSIDE RECORDS SUMMARY | ~2020-02-02 | XMS | Encounter Summary ---
Demographics + + + | Address | [address] | | | [place] [address] | + + + | Home Phone [...] + | Author | [facility] | | | and Sagarana | + + + | Organization | [facility] | | | and [...] Team Providers + +------+ + | Care Painter Plate Name | Role | Phone | + +------+ + | Juvenal Delgado PA-C | PCP | | + +------+ + Encounter Details +--------+ + + + + | Date | Type | Department | Care Team | Description | +--------+ + + + + | 02/12/ | Orders Only | [facility] [place] | Lucio Cata | Chronic kidney | | 2013 | | NEPHROLOGY [address] | M, DO [address] | disease, stage III | | | | [address] | [address] [place] | (moderate) (Primary | | | | [place], [place] | [place] [address] | Dx); Unspecified | | | | [address] | [phone] | essential | | | | [phone] | | hypertension | +--------+ + + + + Social [...] + documented as of this encounter Progress Coco Ambrose RN - 02/12/2013 3:35 PM PDTLab order for nephrology appt on 03/20/13 faxed to [facility]. documented in this encounter Plan of Treatment + +------+--------+ + + | Name | Type | Priori | Associated Diagnoses | Order Schedule | | | | ty | | | + +------+--------+ + + | CBC with | Lab | Routin | Chronic kidney | 1 Occurrences | | Differential | | e | disease, stage III | starting 02/12/2013 | | | | | (moderate) | until 03/13/2013 | | | | | Unspecified | | | | | | essential | | | | | | hypertension | | + +------+--------+ + + | Comprehensive | Lab | Routin | Chronic kidney | 1 Occurrences | | Metabolic Panel | | e | disease, stage III | starting 02/12/2013 | | | | | (moderate) | until 03/13/2013 | | | | | Unspecified | | | | | | essential | | | | | | hypertension | | + +------+--------+ + + | Creatinine | Lab | Routin | Chronic kidney | 1 Occurrences | | Clearance, Result | | e | disease, stage III | starting 02/12/2013 | | | | | (moderate) | until 03/13/2013 | | | | | Unspecified | | | | | | essential | | | | | | hypertension | | + +------+--------+ + + | Phosphorus | Lab | Routin | Chronic kidney | 1 Occurrences | | | | e | disease, stage III | starting 02/12/2013 | | | | | (moderate) | until 03/13/2013 | | | | | Unspecified | | | | | | essential | | | | | | hypertension | | + +------+--------+ + + | Protein, Urine, 24Hr | Lab | Routin | Chronic kidney | 1 Occurrences | | | | e | disease, stage III | starting 02/12/2013 | | | | | (moderate) | until 03/13/2013 | | | | | Unspecified | | | | | | essential | | | | | | hypertension | | + +------+--------+ + + | Parathyroid Hormone, | Lab | Routin | Chronic kidney | 1 Occurrences | | Intact | | e | disease, stage III | starting 02/12/2013 | | | | | (moderate) | until 03/13/2013 | | | | | Unspecified | | | | | | essential | | | | | | hypertension | | + +------+--------+ + + documented as of this encounter Visit Diagnoses + + | Diagnosis | + + | Chronic kidney disease, stage III (moderate) (HCC) - Primary Chronic kidney disease, | | Stage III (moderate) | + + | Unspecified essential hypertension | + + documented in this encounter"
--- OUTSIDE RECORDS SUMMARY | ~2020-02-02 | XMS | Encounter Summary ---
Demographics + + + | Address | [address] | | | [place] [address] | + + + | Home Phone | | + + + | Preferred Language | Unknown | + + + | Marital Status | Single | + + + | Confucianism Affiliation | 1041 | + + + | Race | Unknown | + + + | Ethnic Group | Unknown | + + + Author + + + | Author | [facility] | | | and [place] | + + + | Organization | [facility] | | | and Sagarana [...] Team Providers + +------+ + | Care Garnetter Name | Role | Phone | + +------+ + | Juvenal Delgado PA-C | PCP | | + +------+ + Encounter Details +--------+ + + + + | Date | Type | Department | Care Team | Description | +--------+ + + + + | 02/07/ | Abstract | [facility] | Cata Valdes | | | 2012 | | NEPHROLOGY [address] | M, DO [address] | | | | [address] | [address] [place] | | | | | [place], [place] | [place] [address] | | | | | [phone] | [phone] | | | | | [phone] | | | +--------+ + + + [...] Not on filedocumented as of this encounter Procedures + +--------+ + + + | Procedure Name | Priori | Date/Time | Associated Diagnosis | Comments | | | ty | | | | + +--------+ + + + | EXTERNAL LAB: AST | Routin | 01/28/2013 | | Results for this | | | e | | | procedure are in the | | | | | | results section. | + +--------+ + + + | EXTERNAL LAB: ALT | Routin | 01/28/2013 | | Results for this | | | e | | | procedure are in the | | | | | | results section. | + +--------+ + + + | EXTERNAL LAB: | Routin | 01/28/2013 | | Results for this | | TRIGLYCERIDES | e | | | procedure are in the | | | | | | results section. | + +--------+ + + + | EXTERNAL LAB: | Routin | 01/28/2013 | | Results for this | | CHOLESTEROL, HDL | e | | | procedure are in the | | | | | | results section. | + +--------+ + + + | EXTERNAL LAB: | Routin | 01/28/2013 | | Results for this | | CHOLESTEROL, TOTAL | e | | | procedure are in the | | | | | | results section. | + +--------+ + + + | EXTERNAL LAB: | Routin | 01/28/2013 | | Results for this | | CHOLESTEROL, LDL | e | | | procedure are in the | | | | | | results section. | + +--------+ + + + | EXTERNAL LAB: | Routin | 01/28/2013 | | Results for this | | MICROALBUMIN/CREATIN | e | | | procedure are in the | | INE RATIO, URINE | | | | results section. | + +--------+ + + + | EXTERNAL LAB: | Routin | 01/28/2013 | | Results for this | | MICROALBUMIN, URINE | e | | | procedure are in the | | | | | | results section. | + +--------+ + + + | EXTERNAL LAB: EGFR | Routin | 01/28/2013 | | Results for this | | | e | | | procedure are in the | | | | | | results section. | + +--------+ + + + | EXTERNAL LAB: | Routin | 01/28/2013 | | Results for this | | CREATININE | e | | | procedure are in the | | | | | | results section. | + +--------+ + + + | CMP14+LP+CBC/D/PLT+T | Routin | 01/28/2013 | | Results for this | | SH+UA/M (NON ORD) | e | | | procedure are in the | | | | | | results section. | + +--------+ + + + | EXTERNAL LAB: EGFR | Routin | 07/13/2012 | | Results for this | | | e | | | procedure are in the | | | | | | results section. | + +--------+ + + + | EXTERNAL LAB: | Routin | 07/13/2012 | | Results for this | | CREATININE | e | | | procedure are in the | | | | | | results section. | + +--------+ + + + | BASIC METABOLIC | Routin | 07/13/2012 | | Results for this | | PANEL | e | | | procedure are in the | | | | | | results section. | + +--------+ + + + | EXTERNAL LAB: AST | Routin | 03/03/2010 | | Results for this | | | e | | | procedure are in the | | | | | | results section. | + +--------+ + + + | EXTERNAL LAB: NOEMÍ | Routin | 03/03/2010 | | Results for this | | | e | | | procedure are in the | | | | | | results section. | + +--------+ + + + | EXTERNAL LAB: | Routin | 03/03/2010 | | Results for this | | TRIGLYCERIDES | e | | | procedure are in the | | | | | | results section. | + +--------+ + + + | EXTERNAL LAB: | Routin | 03/03/2010 | | Results for this | | CHOLESTEROL, HDL | e | | | procedure are in the | | | | | | results section. | + +--------+ + + + | EXTERNAL LAB: | Routin | 03/03/2010 | | Results for this | | CHOLESTEROL, TOTAL | e | | | procedure are in the | | | | | | results section. | + +--------+ + + + | EXTERNAL LAB: | Routin | 03/03/2010 | | Results for this | | CHOLESTEROL, LDL | e | | | procedure are in the | | | | | | results section. | + +--------+ + + + | EXTERNAL LAB: EGFR | Routin | 03/03/2010 | | Results for this | | | e | | | procedure are in the | | | | | | results section. | + +--------+ + + + | EXTERNAL LAB: | Routin | 03/03/2010 | | Results for this | | CREATININE | e | | | procedure are in the | | | | | | results section. | + +--------+ + + + | CMP14+LP+CBC/D/PLT+T | Routin | 03/03/2010 | | Results for this | | SH+UA/M (NON ORD) | e | | | procedure are in the | | | | | | results section. | + +--------+ + + + documented in this encounter Results External Lab: Microalbumin/Creatinine Ratio, Urine (01/28/2013) + +-------+ + + + | Component | Value | Ref Range | Performed | Pathologist | | | | | At | Signature | + +-------+ + + + | Microalbumi | 0.79 | | EXTERNAL | | | n/Creatinin | | | LAB | | | e Ratio, | | | | | | External | | | | | + +-------+ + + + + + | Specimen | + + | Blood specimen | | (specimen) | + + + + | Resulting Agency Comment | + + | [facility] | + + + +---------+ + + | Performing | Address | City/State/Zipcode | Phone Number | | Organization | | | | + +---------+ + + | EXTERNAL LAB | | | | + +---------+ + + External Lab: Microalbumin, Urine (01/28/2013) + + + + + + | Component | Value | Ref Range | Performed | Pathologist | | | | | At | Signature | + + + + + + | Microalbumi | 94.1 (A) | 0 - 2 | EXTERNAL | | | n, Urine, | | | LAB | | | External | | | | | + + + + + + + + | Specimen | + + | Blood specimen | | (specimen) | + + + + | Resulting Agency Comment | + + | [facility] | + + + +---------+ + + | Performing | Address | City/State/Zipcode | Phone Number | | Organization | | | | + +---------+ + + | EXTERNAL LAB | | | | + +---------+ + + CMP14+LP+CBC/D/Plt+TSH+UA/M (01/28/2013) + +-------+ + + + | Component | Value | Ref Range | Performed | Pathologist | | | | | At | Signature | + +-------+ + + + | Na | 138 | mmol/L | | | + +-------+ + + + | K | 4.9 | mmol/L | | | + +-------+ + + + | Cl | 109 | mmol/L | | | + +-------+ + + + | CO2 | 21 | mmol/L | | | + +-------+ + + + | BUN | 24 | mg/dL | | | + +-------+ + + + | Glucose | 133 | mg/dL | | | + +-------+ + + + | Calcium | 8.9 | mg/dL | | | + +-------+ + + + | Magnesium | 1.8 | mg/dL | | | + +-------+ + + + | Bilirubin | 0.4 | 0.1 - 1.5 mg/dL | | | | Total | | | | | + +-------+ + + + | Alkaline | 94 | 35 - 115 U/L | | | | Phosphatase | | | | | + +-------+ + + + | Albumin | 4.0 | 3.3 - 4.8 g/dL | | | + +-------+ + + + + + | Specimen | + + | | + + External Lab: AST (01/28/2013) + +-------+ + + + | Component | Value | Ref Range | Performed | Pathologist | | | | | At | Signature | + +-------+ + + + | AST, | 16 | 0 - 40 | EXTERNAL | | | External | | | LAB | | + +-------+ + + + + + | Specimen | + + | Blood specimen | | (specimen) | + + + + | Resulting Agency Comment | + + | [facility] | + + + +---------+ + + | Performing | Address | City/State/Zipcode | Phone Number | | Organization | | | | + +---------+ + + | EXTERNAL LAB | | | | + +---------+ + + External Lab: ALT (01/28/2013) + +-------+ + + + | Component | Value | Ref Range | Performed | Pathologist | | | | | At | Signature | + +-------+ + + + | ALT, | 18 | 0 - 46 | EXTERNAL | | | External | | | LAB | | + +-------+ + + + + + | Specimen | + + | Blood specimen | | (specimen) | + + + + | Resulting Agency Comment | + + | [facility] | + + + +---------+ + + | Performing | Address | City/State/Zipcode | Phone Number | | Organization | | | | + +---------+ + + | EXTERNAL LAB | | | | + +---------+ + + External Lab: Triglycerides (01/28/2013) + +-------+ + + + | Component | Value | Ref Range | Performed | Pathologist | | | | | At | Signature | + +-------+ + + + | Triglycerid | 130 | 150 | EXTERNAL | | | es, | | | LAB | | | External | | | | | + +-------+ + + + + + | Specimen | + + | Blood specimen | | (specimen) | + + + + | Resulting Agency Comment | + + | [facility] | + + + +---------+ + + | Performing | Address | City/State/Zipcode | Phone Number | | Organization | | | | + +---------+ + + | EXTERNAL LAB | | | | + +---------+ + + External Lab: Cholesterol, HDL (01/28/2013) + +-------+ + + + | Component | Value | Ref Range | Performed | Pathologist | | | | | At | Signature | + +-------+ + + + | HDL | 73 | 40 | EXTERNAL | | | Cholesterol | | | LAB | | | , External | | | | | + +-------+ + + + + + | Specimen | + + | Blood specimen | | (specimen) | + + + + | Resulting Agency Comment | + + | [facility] | + + + +---------+ + + | Performing | Address | City/State/Zipcode | Phone Number | | Organization | | | | + +---------+ + + | EXTERNAL LAB | | | | + +---------+ + + External Lab: Cholesterol, Total (01/28/2013) + +---------+ + + + | Component | Value | Ref Range | Performed | Pathologist | | | | | At | Signature | + +---------+ + + + | Cholesterol | 230 (A) | 200 | EXTERNAL | | | , Total, | | | LAB | | | External | | | | | + +---------+ + + + + + | Specimen | + + | Blood specimen | | (specimen) | + + + + | Resulting Agency Comment | + + | [facility] | + + + +---------+ + + | Performing | Address | City/State/Zipcode | Phone Number | | Organization | | | | + +---------+ + + | EXTERNAL LAB | | | | + +---------+ + + External Lab: Cholesterol, LDL (01/28/2013) + +---------+ + + + | Component | Value | Ref Range | Performed | Pathologist | | | | | At | Signature | + +---------+ + + + | LDL | 131 (A) | 100 | EXTERNAL | | | Cholesterol | | | LAB | | | , Direct, | | | | | | External | | | | | + +---------+ + + + + + | Specimen | + + | Blood specimen | | (specimen) | + + + + | Resulting Agency Comment | + + | [facility] | + + + +---------+ + + | Performing | Address | City/State/Zipcode | Phone Number | | Organization | | | | + +---------+ + + | EXTERNAL LAB | | | | + +---------+ + + External Lab: eGFR (01/28/2013) + +--------+ + + + | Component | Value | Ref Range | Performed | Pathologist | | | | | At | Signature | + +--------+ + + + | eGFR, | 32 (A) | 60 | EXTERNAL | | | External | | | LAB | | + +--------+ + + + | eGFR, | | | EXTERNAL | | | | | | LAB | | | [place], | | | | | | External | | | | | + +--------+ + + + + + | Specimen | + + | Blood specimen | | (specimen) | + + + + | Resulting Agency Comment | + + | [facility] | + + + +---------+ + + | Performing | Address | City/State/Zipcode | Phone Number | | Organization | | | | + +---------+ + + | EXTERNAL LAB | | | | + +---------+ + + External Lab: Creatinine (01/28/2013) + + + + + + | Component | Value | Ref Range | Performed | Pathologist | | | | | At | Signature | + + + + + + | Creatinine, | 1.64 (A) | 0.5 - 1.5 | EXTERNAL | | | External | | | LAB | | + + + + + + + + | Specimen | + + | Blood specimen | | (specimen) | + + + + | Resulting Agency Comment | + + | [facility] | + + + +---------+ + + | Performing | Address | City/State/Zipcode | Phone Number | | Organization | | | | + +---------+ + + | EXTERNAL LAB | | | | + +---------+ + + Basic Metabolic Panel (07/13/2012) + +-------+ + + + | Component | Value | Ref Range | Performed | Pathologist | | | | | At | Signature | + +-------+ + + + | Na | 142 | mmol/L | [facility] | [facility] | | | | | | [facility] | | + +-------+ + + + | K | 5.2 | mmol/L | [facility] | | | | | | [facility] | | [facility] - | | | | | | [facility] | | + +-------+ + + + | Cl | 109 | mmol/L | [facility] | | | | | | [facility] | | | [facility] - | | | | | | [facility] | | + +-------+ + + + | CO2 | 25 | mmol/L | [facility] | | | | | | [facility] | | | | [facility] - | | | | | | [facility] | | + +-------+ + + + | BUN | 25 | mg/dL | [facility] | | | | | | [facility] | | | | | [facility] - | | | | | | [facility]ORY | | + +-------+ + + + | Glucose | 95 | mg/dL | [facility] | [facility] | | | [facility] - | | | | | | [facility]ORY | | + +-------+ + + + | Calcium | 8.6 | mg/dL | [facility] | | | | | | [facility] | | | | | [facility] - | | | | | | [facility]ORY | | + +-------+ + + + + + | Specimen | + + | Blood specimen | | (specimen) | + + + + + + + | Performing | Address | City/State/Zipcode | Phone Number | | Organization | | | | + + + + + | [facility] | [address] | [place] | [phone] | | [facility] | | [id number] | | | - LABORATORY | | | | + + + + + | [facility] | [address] | [place], [place] | | | [facility] | | [phone], [facility] | | | - LABORATORY | | | | + + + + + External Lab: eGFR (07/13/2012) + +--------+ + + + | Component | Value | Ref Range | Performed | Pathologist | | | | | At | Signature | + +--------+ + + + | eGFR, | 30 (A) | 60 | EXTERNAL | | | External | | | LAB | | + +--------+ + + + | eGFR, | | | EXTERNAL | | | | | | LAB | | | [place], | | | | | | External | | | | | + +--------+ + + + + + | Specimen | + + | Blood specimen | | (specimen) | + + + + | Resulting Agency Comment | + + | [facility] | + + + +---------+ + + | Performing | Address | City/State/Zipcode | Phone Number | | Organization | | | | + +---------+ + + | EXTERNAL LAB | | | | + +---------+ + + External Lab: Creatinine (07/13/2012) + + + + + + | Component | Value | Ref Range | Performed | Pathologist | | | | | At | Signature | + + + + + + | Creatinine, | 1.75 (A) | 0.5 - 1.5 | EXTERNAL | | | External | | | LAB | | + + + + + + + + | Specimen | + + | Blood specimen | | (specimen) | + + + + | Resulting Agency Comment | + + | [facility] | + + + +---------+ + + | Performing | Address | City/State/Zipcode | Phone Number | | Organization | | | | + +---------+ + + | EXTERNAL LAB | | | | + +---------+ + + CMP14+LP+CBC/D/Plt+TSH+UA/M (03/03/2010) + +-------+ + + + | Component | Value | Ref Range | Performed | Pathologist | | | | | At | Signature | + +-------+ + + + | Na | 140 | mmol/L | | | + +-------+ + + + | K | 4.4 | mmol/L | | | + +-------+ + + + | Cl | 107 | mmol/L | | | + +-------+ + + + | CO2 | 24 | mmol/L | | | + +-------+ + + + | BUN | 16 | mg/dL | | | + +-------+ + + + | Glucose | 88 | mg/dL | | | + +-------+ + + + | Calcium | 9.0 | mg/dL | | | + +-------+ + + + | Bilirubin | 0.9 | 0.1 - 1.5 mg/dL | | | | Total | | | | | + +-------+ + + + | Alkaline | 83 | 35 - 115 U/L | | | | Phosphatase | | | | | + +-------+ + + + | Albumin | 3.4 | 3.3 - 4.8 g/dL | | | + +-------+ + + + + + | Specimen | + + | | + + External Lab: AST (03/03/2010) + +-------+ + + + | Component | Value | Ref Range | Performed | Pathologist | | | | | At | Signature | + +-------+ + + + | AST, | 31 | 0 - 40 | EXTERNAL | | | External | | | LAB | | + +-------+ + + + + + | Specimen | + + | Blood specimen | | (specimen) | + + + + | Resulting Agency Comment | + + | [facility] | + + + +---------+ + + | Performing | Address | City/State/Zipcode | Phone Number | | Organization | | | | + +---------+ + + | EXTERNAL LAB | | | | + +---------+ + + External Lab: ALT (03/03/2010) + +-------+ + + + | Component | Value | Ref Range | Performed | Pathologist | | | | | At | Signature | + +-------+ + + + | ALT, | 27 | 0 - 46 | EXTERNAL | | | External | | | LAB | | + +-------+ + + + + + | Specimen | + + | Blood specimen | | (specimen) | + + + + | Resulting Agency Comment | + + | [facility] | + + + +---------+ + + | Performing | Address | City/State/Zipcode | Phone Number | | Organization | | | | + +---------+ + + | EXTERNAL LAB | | | | + +---------+ + + External Lab: Triglycerides (03/03/2010) + +---------+ + + + | Component | Value | Ref Range | Performed | Pathologist | | | | | At | Signature | + +---------+ + + + | Triglycerid | 199 (A) | 150 | EXTERNAL | | | es, | | | LAB | | | External | | | | | + +---------+ + + + + + | Specimen | + + | Blood specimen | | (specimen) | + + + + | Resulting Agency Comment | + + | [facility] | + + + +---------+ + + | Performing | Address | City/State/Zipcode | Phone Number | | Organization | | | | + +---------+ + + | EXTERNAL LAB | | | | + +---------+ + + External Lab: Cholesterol, HDL (03/03/2010) + +-------+ + + + | Component | Value | Ref Range | Performed | Pathologist | | | | | At | Signature | + +-------+ + + + | HDL | 46.6 | 40 | EXTERNAL | | | Cholesterol | | | LAB | | | , External | | | | | + +-------+ + + + + + | Specimen | + + | Blood specimen | | (specimen) | + + + + | Resulting Agency Comment | + + | [facility] | + + + +---------+ + + | Performing | Address | City/State/Zipcode | Phone Number | | Organization | | | | + +---------+ + + | EXTERNAL LAB | | | | + +---------+ + + External Lab: Cholesterol, Total (03/03/2010) + +---------+ + + + | Component | Value | Ref Range | Performed | Pathologist | | | | | At | Signature | + +---------+ + + + | Cholesterol | 238 (A) | 200 | EXTERNAL | | | , Total, | | | LAB | | | External | | | | | + +---------+ + + + + + | Specimen | + + | Blood specimen | | (specimen) | + + + + | Resulting Agency Comment | + + | [facility] | + + + +---------+ + + | Performing | Address | City/State/Zipcode | Phone Number | | Organization | | | | + +---------+ + + | EXTERNAL LAB | | | | + +---------+ + + External Lab: Cholesterol, LDL (03/03/2010) + +---------+ + + + | Component | Value | Ref Range | Performed | Pathologist | | | | | At | Signature | + +---------+ + + + | LDL | 152 (A) | 100 | EXTERNAL | | | Cholesterol | | | LAB | | | , Direct, | | | | | | External | | | | | + +---------+ + + + + + | Specimen | + + | Blood specimen | | (specimen) | + + + + | Resulting Agency Comment | + + | [facility] | + + + +---------+ + + | Performing | Address | City/State/Zipcode | Phone Number | | Organization | | | | + +---------+ + + | EXTERNAL LAB | | | | + +---------+ + + External Lab: eGFR (03/03/2010) + +--------+ + + + | Component | Value | Ref Range | Performed | Pathologist | | | | | At | Signature | + +--------+ + + + | eGFR, | 43 (A) | 60 | EXTERNAL | | | External | | | LAB | | + +--------+ + + + | eGFR, | | | EXTERNAL | | | | | | LAB | | | [place]yan, | | | | | | External | | | | | + +--------+ + + + + + | Specimen | + + | Blood specimen | | (specimen) | + + + + | Resulting Agency Comment | + + | [facility] | + + + +---------+ + + | Performing | Address | City/State/Zipcode | Phone Number | | Organization | | | | + +---------+ + + | EXTERNAL LAB | | | | + +---------+ + + External Lab: Creatinine (03/03/2010) + +-------+ + + + | Component | Value | Ref Range | Performed | Pathologist | | | | | At | Signature | + +-------+ + + + | Creatinine, | 1.28 | 0.5 - 1.5 | EXTERNAL | | | External | | | LAB | | + +-------+ + + + + + | Specimen | + + | Blood specimen | | (specimen) | + + + + | Resulting Agency Comment | + + | [facility] | + + + +---------+ + + | Performing | Address | City/State/Zipcode | Phone Number | | Organization | | | | + +---------+ + + | EXTERNAL LAB | | | | + +---------+ + + documented in this encounter Visit Diagnoses Not on filedocumented in this encounter"
--- OUTSIDE RECORDS SUMMARY | ~2020-02-02 | XMS | Encounter Summary ---
Demographics + + + | Address | [address] | | | [place] [address] | + + + | Home Phone | | + + + | Preferred Language | Unknown | + + + | Marital Status | Single | + + + | Mormon Affiliation | 1041 | + + + | Race | Unknown | + + + | Ethnic Group | Unknown | + + + Author + + + | Author | [facility] | | | and Sagarana | + + + | Organization | [facility] | | | and Sagarana [...] Team Providers + +------+ + | Care Casino Floor Person Name | Role | Phone | + +------+ + | Juvenal Delgado PA-C | PCP | | + +------+ + Encounter Details +--------+ + + + + | Date | Type | Department | Care Team | Description | +--------+ + + + + | 02/12/ | Abstract | [facility] | [place], | | | 2012 | | NEPHROLOGY [address] | Coco Hancock RN | | | | | [facility] | | | | | | [place] | | | | | | [address] | | | | | | [phone] | | | +--------+ + + + [...] | EXTERNAL LAB: EGFR | Routin | 02/06/2013 | | Results for this | | | e | | | procedure are in the | | | | | | results section. | + +--------+ + + + | EXTERNAL LAB: | Routin | 02/06/2013 | | Results for this | | CREATININE | e | | | procedure are in the | | | | | | results section. | + +--------+ + + + | BASIC METABOLIC | Routin | 02/06/2013 | | Results for this | | PANEL | e | | | procedure are in the | | | | | | results section. | + +--------+ + + + | EXTERNAL LAB: AST | Routin | 02/03/2013 | | Results for this | | | e | | | procedure are in the | | | | | | results section. | + +--------+ + + + | EXTERNAL LAB: ALT | Routin | 02/03/2013 | | Results for this | | | e | | | procedure are in the | | | | | | results section. | + +--------+ + + + | EXTERNAL LAB: | Routin | 02/03/2013 | | Results for this | | TRIGLYCERIDES | e | | | procedure are in the | | | | | | results section. | + +--------+ + + + | EXTERNAL LAB: | Routin | 02/03/2013 | | Results for this | | CHOLESTEROL, TOTAL | e | | | procedure are in the | | | | | | results section. | + +--------+ + + + | EXTERNAL LAB: EGFR | Routin | 02/03/2013 | | Results for this | | | e | | | procedure are in the | | | | | | results section. | + +--------+ + + + | EXTERNAL LAB: | Routin | 02/03/2013 | | Results for this | | CREATININE | e | | | procedure are in the | | | | | | results section. | + +--------+ + + + | CMPI | Routin | 02/03/2013 | | Results for this | | | e | | | procedure are in the | | | | | | results section. | + +--------+ + + + | EXTERNAL LAB: EGFR | Routin | 02/02/2013 | | Results for this | | | e | | | procedure are in the | | | | | | results section. | + +--------+ + + + | EXTERNAL LAB: | Routin | 02/02/2013 | | Results for this | | CREATININE | e | | | procedure are in the | | | | | | results section. | + +--------+ + + + | BASIC METABOLIC | Routin | 02/02/2013 | | Results for this | | PANEL | e | | | procedure are in the | | | | | | results section. | + +--------+ + + + | EXTERNAL LAB: AST | Routin | 02/01/2013 | | Results for this | | | e | | | procedure are in the | | | | | | results section. | + +--------+ + + + | EXTERNAL LAB: NOEMÍ | Routin | 02/01/2013 | | Results for this | | | e | | | procedure are in the | | | | | | results section. | + +--------+ + + + | EXTERNAL LAB: EGFR | Routin | 02/01/2013 | | Results for this | | | e | | | procedure are in the | | | | | | results section. | + +--------+ + + + | EXTERNAL LAB: | Routin | 02/01/2013 | | Results for this | | CREATININE | e | | | procedure are in the | | | | | | results section. | + +--------+ + + + | CMPI | Routin | 02/01/2013 | | Results for this | | | e | | | procedure are in the | | | | | | results section. | + +--------+ + + + documented in this encounter Results Basic Metabolic Panel (02/06/2013) + +-------+ + + + | Component | Value | Ref Range | Performed | Pathologist | | | | | At | Signature | + +-------+ + + + | Na | 139 | mmol/L | [facility] | [facility] | | [facility] | | + +-------+ + + + | K | 3.9 | mmol/L | [facility] | | [facility] | | | | | | [facility] | | + +-------+ + + + | Cl | 104 | mmol/L | [facility] | | [facility] | [facility] | | [facility] | | | | | | [facility]ORY | | + +-------+ + + + | CO2 | 29 | mmol/L | [facility] | | | [facility] | [facility] | | [facility] | | | | | | [facility] | | + +-------+ + + + | Glucose | 92 | mg/dL | [facility] | | | [facility] | | | | [facility] | | | | | | [facility]ORY | | + +-------+ + + + | Calcium | 8.2 | mg/dL | [facility] | | | | | | [facility] | | | | | | [facility] - | | | | | | LAB[facility]ATORY | | + +-------+ + + + | BUN | 13 | mg/dL | [facility] | | | [...] + | [facility] | [address] | [place], [place] | [phone] | | [facility] | | [address] | | | - LABORATORY | | | | + + + + + | [facility] | [address] | [place], [place] | | | [facility] | | [address], [facility] | | | - LABORATORY | | | | + + + + + External Lab: eGFR (02/06/2013) + +-------+ + + + | Component | Value | Ref Range | Performed | Pathologist | | | | | At | Signature | + +-------+ + + + | eGFR, | 42 | | EXTERNAL | | | External | | | LAB | | + +-------+ + + + | eGFR, | | | EXTERNAL | | | | | | LAB | | | Guamanian, | | | | | | External | | | | | + +-------+ + + + + + | Specimen | + + | Blood specimen | | (specimen) | + + + + | Resulting Agency Comment | + + | [facility] | + + + +---------+ + + | Performing | Address | City/State/Zipcode | Phone Number | | Organization | | | | + +---------+ + + | EXTERNAL LAB | | | | + +---------+ + + External Lab: Creatinine (02/06/2013) + +-------+ + + + | Component [...] Agency Comment | + + | [facility] | + + + +---------+ + + | Performing | Address | City/State/Zipcode | Phone Number | | Organization | | | | + +---------+ + + | EXTERNAL LAB | | | | + +---------+ + + CMP/ISTAT (02/03/2013) + + + + + + | Component | Value | Ref Range | Performed | Pathologist | | | | | At | Signature | + + + + + + | Glucose | 143 | mg/dL | | | + + + + + + | Uric Acid | 8.0 | mg/dL | | | + + + + + + | Alkaline | 89 | 35 - 115 U/L | | | | Phosphatase | | | | | + + + + + + | Bilirubin | 0.3 | 0.1 - 1.5 mg/dL | | | | Total | | | | | + + + + + + | Albumin | 2.7 (A) | 3.3 - 4.8 g/dL | | | + + + + + + | Calcium | 8.0 | mg/dL | | | + + + + + + | Phosphorus | 3.3 | 2.6 - 4.4 mg/dL | | | + + + + + + | BUN | 23 | mg/dL | | | + + + + + + | Na | 138 | mmol/L | | | + + + + + + | K | 4.4 | mmol/L | | | + + + + + + | Cl | 106 | mmol/L | | | + + + + + + | CO2 | 26 | mmol/L | | | + + + + + + | White Blood | 12.0 | K/uL | | | | Cells | | | | | + + + + + + | Hemoglobin | 9.6 (A) | 11.3 - 15.5 | | | | | | g/dL | | | + + + + + + | Hematocrit | 28.9 (A) | 34.0 - 46.0 % | | | + + + + + + | MCV | 95.7 | 80.0 - 98.0 fL | | | + + + + + + | Platelet | 335 | 150 - 400 K/uL | | | | Count | | | | | + + + + + + + + | Specimen | + + | Blood specimen | | (specimen) | + + External Lab: AST (02/03/2013) + +-------+ + + + | Component | Value | Ref Range | Performed | Pathologist | | | | | At | Signature | + +-------+ + + + | AST, | 14 | 0 - 40 | EXTERNAL | | | External | | | LAB | | + +-------+ + + + + + | Specimen | + + | Blood specimen | | (specimen) | + + + + | Resulting Agency Comment | + + | [facility] | + + + +---------+ + + | Performing | Address | City/State/Zipcode | Phone Number | | Organization | | | | + +---------+ + + | EXTERNAL LAB | | | | + +---------+ + + External Lab: ALT (02/03/2013) + +-------+ + + + | Component | Value | Ref Range | Performed | Pathologist | | | | | At | Signature | + +-------+ + + + | ALT, | 8 | 0 - 46 | EXTERNAL | | | External | | | LAB | | + +-------+ + + + + + | Specimen | + + | Blood specimen | | (specimen) | + + + + | Resulting Agency Comment | + + | [facility] | + + + +---------+ + + | Performing | Address | City/State/Zipcode | Phone Number | | Organization | | | | + +---------+ + + | EXTERNAL LAB | | | | + +---------+ + + External Lab: Triglycerides (02/03/2013) + +-------+ + + + | Component | Value | Ref Range | Performed | Pathologist | | | | | At | Signature | + +-------+ + + + | Triglycerid | 128 | 30 - 150 | EXTERNAL | | | es, | | | LAB | | | External | | | | | + +-------+ + + + + + | Specimen | + + | Blood specimen | | (specimen) | + + + + | Resulting Agency Comment | + + | [facility] | + + + +---------+ + + | Performing | Address | City/State/Zipcode | Phone Number | | Organization | | | | + +---------+ + + | EXTERNAL LAB | | | | + +---------+ + + External Lab: Cholesterol, Total (02/03/2013) + +-------+ + + + | Component | Value | Ref Range | Performed | Pathologist | | | | | At | Signature | + +-------+ + + + | Cholesterol | 116 | 200 | EXTERNAL | | | , Total, | | | LAB | | | External | | | | | + +-------+ + + + + + | Specimen | + + | Blood specimen | | (specimen) | + + + + | Resulting Agency Comment | + + | [facility] | + + + +---------+ + + | Performing | Address | City/State/Zipcode | Phone Number | | Organization | | | | + +---------+ + + | EXTERNAL LAB | | | | + +---------+ + + External Lab: eGFR (02/03/2013) + +-------+ + + + | Component | Value | Ref Range | Performed | Pathologist | | | | | At | Signature | + +-------+ + + + | eGFR, | 28 | | EXTERNAL | | | External | | | LAB | | + +-------+ + + + | eGFR, | | | EXTERNAL | | | | | | LAB | | | Guamanian, | | | | | | External | | | | | + +-------+ + + + + + | Specimen | + + | Blood specimen | | (specimen) | + + + + | Resulting Agency Comment | + + | [facility] | + + + +---------+ + + | Performing | Address | City/State/Zipcode | Phone Number | | Organization | | | | + +---------+ + + | EXTERNAL LAB | | | | + +---------+ + + External Lab: Creatinine (02/03/2013) + + + + + + | Component | Value | Ref Range | Performed | Pathologist | | | | | At | Signature | + + + + + + | Creatinine, | 1.86 (A) | 0.5 - 1.5 | EXTERNAL | | | External | | | LAB | | + + + + + + + + | Specimen | + + | Blood specimen | | (specimen) | + + + + | Resulting Agency Comment | + + | [facility] | + + + +---------+ + + | Performing | Address | City/State/Zipcode | Phone Number | | Organization | | | | + +---------+ + + | EXTERNAL LAB | | | | + +---------+ + + Basic Metabolic Panel (02/02/2013) + +-------+ + + + | Component | Value | Ref Range | Performed | Pathologist | | | | | At | Signature | + +-------+ + + + | Na | 137 | mmol/L | [facility] | | [facility] | | | [facility] - | | | | | | [facility]ORY | | + +-------+ + + + | K | 4.0 | mmol/L | [facility] | | | | | [facility] | | | | [facility] - | | | | | | LAB[facility]ATORY | | + +-------+ + + + | Cl | 107 | mmol/L | [facility] | | [facility] | | [facility] | | | | [facility] - | | | | | | LAB[facility]ATORY | | + +-------+ + + + | CO2 | 22 | mmol/L | [facility] | | | | | | [facility] | | | | | [facility] - | | | | | | LAB[facility]ATORY | | + +-------+ + + + | Glucose | 81 | mg/dL | [facility] | | | [facility] | | [facility] | | | | | [facility] - | | | | | | LAB[facility]ATORY | | + +-------+ + + + | Calcium | 8.3 | mg/dL | [facility] | | | | [facility] | | | | | | [facility] | | | | | | [facility] - | | | | | | LABORATORY | | + +-------+ + + + | BUN | 32 | mg/dL | [facility] | | | [...] + | [facility] | [address] | [place] | [phone] | | [facility] | | [address] | | | - LABORATORY | | | | + + + + + | [facility] | [address] | [place] | | | [facility] | | [address], [facility] | | | - LABORATORY | | | | + + + + + External Lab: eGFR (02/02/2013) + +-------+ + + + | Component | Value | Ref Range | Performed | Pathologist | | | | | At | Signature | + +-------+ + + + | eGFR, | 23 | | EXTERNAL | | | External | | | LAB | | + +-------+ + + + | eGFR, | | | EXTERNAL | | | | | | LAB | | | Guamanian, | | | | | | External | | | | | + +-------+ + + + + + | Specimen | + + | Blood specimen | | (specimen) | + + + + | Resulting Agency Comment | + + | [facility] | + + + +---------+ + + | Performing | Address | City/State/Zipcode | Phone Number | | Organization | | | | + +---------+ + + | EXTERNAL LAB | | | | + +---------+ + + External Lab: Creatinine (02/02/2013) + +---------+ + + + | Component | Value | Ref Range | Performed | Pathologist | | | | | At | Signature | + +---------+ + + + | Creatinine, | 2.0 (A) | 0.5 - 1.5 | EXTERNAL | | | External | | | LAB | | + +---------+ + + + + + | Specimen | + + | Blood specimen | | (specimen) | + + + + | Resulting Agency Comment | + + | [facility] | + + + +---------+ + + | Performing | Address | City/State/Zipcode | Phone Number | | Organization | | | | + +---------+ + + | EXTERNAL LAB | | | | + +---------+ + + CMP/ISTAT (02/01/2013) + +---------+ + + + | Component | Value | Ref Range | Performed | Pathologist | | | | | At | Signature | + +---------+ + + + | Na | 135 | mmol/L | | | + +---------+ + + + | K | 4.1 | mmol/L | | | + +---------+ + + + | Cl | 104 | mmol/L | | | + +---------+ + + + | CO2 | 21 | mmol/L | | | + +---------+ + + + | BUN | 39 | mg/dL | | | + +---------+ + + + | Calcium | 8.6 | mg/dL | | | + +---------+ + + + | Alkaline | 121 (A) | 35 - 115 U/L | | | | Phosphatase | | | | | + +---------+ + + + | Bilirubin | 0.6 | 0.1 - 1.5 mg/dL | | | | Total | | | | | + +---------+ + + + | Albumin | 3.7 | 3.3 - 4.8 g/dL | | | + +---------+ + + + | Amylase | 26 | IU/L | | | + +---------+ + + + | Lipase | 34 | U/L | | | + +---------+ + + + | White Blood | 11.3 | K/uL | | | | Cells | | | | | + +---------+ + + + | Hemoglobin | 11.5 | 11.3 - 15.5 | | | | | | g/dL | | | + +---------+ + + + | Hematocrit | 35.3 | 34.0 - 46.0 % | | | + +---------+ + + + | MCV | 96.1 | 80.0 - 98.0 fL | | | + +---------+ + + + | Platelet | 360 | 150 - 400 K/uL | | | | Count | | | | | + +---------+ + + + | Glucose | 91 | mg/dL | | | + +---------+ + + + + + | Specimen | + + | Blood specimen | | (specimen) | + + External Lab: AST (02/01/2013) + +-------+ + + + | Component | Value | Ref Range | Performed | Pathologist | | | | | At | Signature | + +-------+ + + + | AST, | 24 | 0 - 40 | EXTERNAL | | | External | | | LAB | | + +-------+ + + + + + | Specimen | + + | Blood specimen | | (specimen) | + + + + | Resulting Agency Comment | + + | [facility] | + + + +---------+ + + | Performing | Address | City/State/Zipcode | Phone Number | | Organization | | | | + +---------+ + + | EXTERNAL LAB | | | | + +---------+ + + External Lab: ALT (02/01/2013) + +-------+ + + + | Component | Value | Ref Range | Performed | Pathologist | | | | | At | Signature | + +-------+ + + + | ALT, | 22 | 0 - 46 | EXTERNAL | | | External | | | LAB | | + +-------+ + + + + + | Specimen | + + | Blood specimen | | (specimen) | + + + + | Resulting Agency Comment | + + | [facility] | + + + +---------+ + + | Performing | Address | City/State/Zipcode | Phone Number | | Organization | | | | + +---------+ + + | EXTERNAL LAB | | | | + +---------+ + + External Lab: eGFR (02/01/2013) + +-------+ + + + | Component | Value | Ref Range | Performed | Pathologist | | | | | At | Signature | + +-------+ + + + | eGFR, | 18 | | EXTERNAL | | | External | | | LAB | | + +-------+ + + + | eGFR, | | | EXTERNAL | | | | | | LAB | | | Guamanian, | | | | | | External | | | | | + +-------+ + + + + + | Specimen | + + | Blood specimen | | (specimen) | + + + + | Resulting Agency Comment | + + | [facility] | + + + +---------+ + + | Performing | Address | City/State/Zipcode | Phone Number | | Organization | | | | + +---------+ + + | EXTERNAL LAB | | | | + +---------+ + + External Lab: Creatinine (02/01/2013) + + + + + + | Component | Value | Ref Range | Performed | Pathologist | | | | | At | Signature | + + + + + + | Creatinine, | 2.68 (A) | 0.5 - 1.5 | EXTERNAL | | | External | | | LAB | | + + + + + + + + | Specimen | + + | Blood specimen | | (specimen) | + + + + | Resulting Agency Comment | + + | [facility] | + + + +---------+ + + | Performing | Address | City/State/Zipcode | Phone Number | | Organization | | | | + +---------+ + + | EXTERNAL LAB | | | | + +---------+ + + documented in this encounter Visit Diagnoses Not on filedocumented in this encounter"
--- OUTSIDE RECORDS SUMMARY | ~2020-02-02 | XMS | Encounter Summary ---
Demographics + + + | Address | [address] | | | [place] [address] | + + + | Home Phone | | + + + | Preferred Language | Unknown | + + + | Marital Status | Single | + + + | Samaritan Affiliation | 1041 | + + + | Race | Unknown | + + + | Ethnic Group | Unknown | + + + Author + + + | Author | [facility] | | | and Sagarana | + + + | Organization | [facility] | | | and [place] | + + + | Address | Unknown | + + + | Phone | Unavailable | + + + Support + + +---------+ + | Name | Relationship | Address | Phone | + + +---------+ + | Tonio Nichols | ECON | Unknown | | + + +---------+ + | Cristina Medeiors | ECON | Unknown | | + + +---------+ + Care Team Providers + +------+ + | Care Social Economist Name | Role | Phone | + +------+ + | Juvenal Delgado PA-C | PCP | | + +------+ + Reason for Visit +--------+--------+ + | Reason | Onset | Comments | | | Date | | +--------+--------+ + | Other | 10/10/ | | | | 2020 | | +--------+--------+ + Encounter Details +--------+ + + + + | Date | Type | Department | Care Team | Description | +--------+ + + + + | 10/10/ | Telephone | [facility] | Chandrika Baumann, | Other | | 2020 | | GENERAL SURGERY [address] | Weather Strip Mechanic | | | | | [address] | | | | | | [place], [place] | | | | | | [address] | | | | | | [phone] | | | +--------+ + + + [...] Miscellaneous Notes Telephone Encounter - Chandrika Baumann, Weather Strip Mechanic - 10/11/2019 4:26 PM PDTReceive d a call from Dr. Huston who states that patient should not complete the 2 fleets enema s prior to surgery as her mass is very painful and she cannot tolerate this. Informed him th at this is fine, and I will let Dr. Hurley know. He thanked me and call was ended. documented in this encounter Plan of Treatment Not on filedocumented as of this encounter Visit Diagnoses Not on filedocumented in this encounter"
--- OUTSIDE RECORDS SUMMARY | ~2020-02-02 | XMS | Encounter Summary ---
Demographics + + + | Address | [address] | | | [place] [address] | + + + | Home Phone | | + + + | Preferred Language | Unknown | + + + | Marital Status | Single | + + + | Samaritan Affiliation | 1041 | + + + | Race | Unknown | + + + | Ethnic Group | Unknown | + + + Author + + + | Author | [facility] | | | and [place] | + + + | Organization | [facility] | | | and [place] | + + + | Address | [...] Team Providers + +------+ + | Care Automotive Technician Instructor Name | Role | Phone | + +------+ + PCP | Unavailable | + +------+ + Encounter Details +--------+ + + + + | Date | Type | Department | Care Team | Description | +--------+ + + + + | 08/18/ | Hospital | [facility] | Hira Hammond, | | | 2006 - | Encounter | [facility] | MD [address] | | | | | CARDIAC TELEMETRY | TONY Alexus MORTENSEN | | | 08/19/ | | [address] | [place] [address] | | | 2006 | | [place] | [phone] | | | | | [address] | | | | | | [phone] | | | +--------+ + + + [...] + + documented as of this encounter Procedure Hira Mcneill MD - 05/15/2013 7:27 PM PSTPATIENT NAME: Herlinda Hernandez Sex/Age: F/56 : 1950 JAVA TECH LEAD: Hira Hammond MD DATE: 08/17/2006 PROCEDURE: Left heart catheterization. PROCEDURE: The patient is brought to the catheterization laboratory in the postprandial, nonsedated state. The right femoral groin was prepped and draped in usual sterile fashion . Local anesthesia was accomplished with 1% lidocaine. Continuous heart rate, blood press ure and saturation monitoring is preformed throughout the procedure. A pigtail catheter is used to perform ventriculography and preformed Luis F catheter is used to perform select jh coronary angiography. FINDINGS: On left ventriculography, the end diastolic pressure is 7. There is normal syst olic function in the aortic and mitral valves are functioning normally. The ejection fracti on was estimated at greater than 60%. CORONARIES: LMC: Coronary arteriography of the left main was normal and free of disease. It bifurcates into the anterior descending and circumflex vessels. LAD: The anterior descending is free of disease. CIRC: The circumflex vessel is free of disease. RCA: The right coronary artery is dominant and is free of disease. CONCLUSIONS: 1. Normal left ventricular function. 2. Normal coronary arteries. Hira Hammond MD [facility] #[id number] cc: Hira ferrell MD Digitally authenticated 02/01/07 1333 Hira Hammond MD MAHOGANY HERNANDEZ [place] [id number] 08/19/06 [id number] CARDIAC CATHETERIZATION REPORT Hira francois MD E-Sign: [facility] THIS REPORT IS CONFIDENTIAL AND NOT TO BE RELEASED WITHOUT PROPER AUTHORIZATION.Electronica lly signed by Hira Hammond MD at 05/17/2013 3:00 PM PSTdocumented in this encounter Plan of Treatment Not on filedocumented as of this encounter Visit Diagnoses Not on filedocumented in this encounter"
--- OUTSIDE RECORDS SUMMARY | ~2020-02-02 | XMS | Encounter Summary ---
Demographics + + + | Address | [address] | | | [place] [address] | + + + | Home Phone [...] + + + | Author | [facility] | | | and Sagarana | + + + | Organization | [facility] | | | and [...] Team Providers + +------+ + | Care Biomedical Engineering Technologist Name | Role | Phone | + [...] | cancer (HCC) | [address] | | | | | Procedures | [address] | | | | | MRI Pelvis | [place], | [place], [place] | | | | | wo Contrast | [place] | [address] | | | | | | [address] | Phone: | | | | | | Phone: | [phone] | | | | | | [phone] | Fax: | | | | | | Fax: | [phone] | | | | | | [phone] | | +--------+--------+ + + + + Reason for Visit Diagnostic/Screening (Urgent) +--------+--------+ + + + + [...] | cancer (HCC) | [address] | [address] | | | | | Procedures | [address] | [address] | | | | | MRI Pelvis | [facility], | [place], [place] | | | | | wo Contrast | [place] | [address] | | | | | | [address] | Phone: | | | | | | Phone: | [phone] | | | | | | [phone] | Fax: | | | | | | Fax: | [phone] | | | | | | [phone] | | +--------+--------+ + + + + Encounter Details +--------+ + + + + | Date | Type | Department | Care Team | Description | +--------+ + + + + | 10/27/ | Hospital | [facility] | Dickson Hurley, | Rectal cancer (HCC) | | 2019 | Encounter | [facility] | [address] | | | | | [address] | [address] | | | | | [place], [place] | [place] [address] | | | | | [address] | [phone] | | | | | [phone] | | | +--------+ + + + [...] + + documented as of this encounter Medications at Time of Discharge + + + +---------+--------+ + | Medication | Sig | Dispensed | Refills | Start | End Date | | | | | | Date | | + + + +---------+--------+ + | | Take 25 mg by mouth | | 0 | | | | hydrochlorothiazide | Daily. | | | | | | 25 mg tablet | | | | | | + + + +---------+--------+ + | lisinopril | Take 5 mg by mouth. | | 0 | | | | (PRINIVIL, ZESTRIL) | | | | | | | 5 mg tablet | | | | | | + + + +---------+--------+ + | lisinopril | Take 40 mg by mouth | | 0 | | | | (PRINIVIL,ZESTRIL) | Daily. | | | | | | 40 MG tablet | | | | | | + + + +---------+--------+ + | metoprolol | Take 25 mg by mouth | | 0 | | | | tartrate (LOPRESSOR) | 2 times daily. | | | | | | 25 mg tablet | | | | | | + + + +---------+--------+ + | omeprazole | Take 40 mg by mouth. | | 0 | | | | (PRILOSEC) 40 MG | | | | | | | capsule | | | | | | + + + +---------+--------+ + | oxyCODONE | Take 5 mg by mouth | | 0 | | | | (ROXICODONE) 5 mg | every 4 hours as | | | | | | tablet | needed. | | | | | + + + +---------+--------+ + documented as of this encounter Plan of Treatment Not on filedocumented as of this encounter Procedures + +--------+ + + + | Procedure Name | Priori | Date/Time | Associated Diagnosis | Comments | | | ty | | | | + +--------+ + + + | MRI PELVIS WO | ERI | 10/28/2019 | Rectal cancer | Results for this | | CONTRAST | | 10:46 AM | (HCC) | procedure are in the | | | | PDT | | results section. | + +--------+ + + + documented in this encounter Results MRI Pelvis wo Contrast [...] Comment MRI stage: T4. N2. Signed by: Terrence | | | Abelardo Buchanan Sign Date/Time: 10/28/2019 [...]
--- OUTSIDE RECORDS SUMMARY | ~2020-02-02 | XMS | Encounter Summary ---
Demographics + + + | Address | [address] | | | [place] [address] | + + + | Home Phone | | + + + | Preferred Language | Unknown | + + + | Marital Status | Single | + + + | Hindu Affiliation | 1041 | + + + | Race | Unknown | + + + | Ethnic Group | Unknown | + + + Author + + + | Author | [facility] | | | and Sagarana | + + + | Organization | [facility] | | | and Sagarana | + + + | Address | Unknown | + + + | Phone | Unavailable | + + + Support + + +---------+ + | Name | Relationship | Address | Phone | + + +---------+ + | Tonio Nihcols | ECON | Unknown | | + + +---------+ + | Cristina Medeiros | ECON | Unknown | | + + +---------+ + Care Team Providers + +------+ + | Care School Transportation Supervisor Name | Role | Phone | + +------+ + | Juvenal Delgado PA-C | PCP | | + +------+ + Encounter Details +--------+ + + + + | Date | Type | Department | Care Team | Description | +--------+ + + + + | 02/05/ | Orders Only | [facility] [place] | Donn Valdesias | Chronic kidney | | 2012 | | NEPHROLOGY [address] | M, DO [address] | disease, stage III | | | | [address] | [address] [place] | (moderate) (Primary | | | | [place], [place] | [place] [address] | Dx) | | | | [address] | [phone] | | | | | [phone] | | | +--------+ + + + [...] + documented as of this encounter Progress Leslie Tinajero RN - 02/05/2013 2:59 PM PDTRenal ultrasound sound order faxed to Genna Horne to schedule renal ultrasound documented in this encounter Plan of Treatment + +---------+--------+ + + | Name | Type | Priori | Associated Diagnoses | Order Schedule | | | | ty | | | + +---------+--------+ + + | US Renal Limited | Imaging | Routin | Chronic kidney | Expected: 02/05/2013 | | | | e | disease, stage III | (Approximate), | | | | | (moderate) | Expires: 02/05/2014 | + +---------+--------+ + + documented as of this encounter Visit Diagnoses + + | Diagnosis | + + | Chronic kidney disease, stage III (moderate) (HCC) - Primary Chronic kidney disease, | | Stage III (moderate) | + + documented in this encounter"
[~2020-02-02 15:02] MED LIST changes: +NORCO 10-325 T1 EACH PO
--- OUTSIDE RECORDS SUMMARY | 2020-02-02 15:04 | XMS ---
PreManage Notification: MILO RUBIN Security Programming Specialist Events No recent Security Events currently on file [facility] There are no care providers on record at this time. Ashely has no Care Guidelines for this patient. Rian VISIT COUNT (12 MO.) 1 JUAN CARLOS Singh TOTAL 1 NOTE: Visits indicate total known visits. ED/C VISIT TRACKING (12 MO.) 02/02/2020 15:03 JUAN CARLOS Mc[place]ry [place] TYPE: Emergency COMPLAINT: - CHEMO PUMP PROBLEM INPATIENT VISIT TRACKING (12 MO.) No inpatient visits to display in this time frame [email or web address]
== END 2020-02-02 15:50 | disposition home or self-care (01) ==
LOC: ED 15:02
DX: Z45.1 Encounter for adjustment and management of infusion pump (principal)

== ENCOUNTER 2021-03-12 06:25 | Day surgery (SDC) | payer MEDICARE, OTHER ==
[~2021-03-12] VITALS: Ht 157.5 cm; Wt 65.0 kg
[~2021-03-12 06:25] MED LIST changes: +GAS RELIEF80 MG PO; +METOPROLOL SUCC25 MG PO; +NORVASC5 MG PO
--- NOTE | 2021-03-12 08:08 | NUR ---
03/12/21 0808 Pau Mccabe 0805- PT ARRIVES TO PACU AROUSABLE TO STIMULI. PT REPORTS SHE IS "VERY TIRED". PT UPDATED THAT SHE IS IN THE RECOVERY ROOM AND IS CAN REST FOR NOW. RESP EVEN AND UNLABORED. OXYGEN SAT HIGH 90'S TO 100% ON 6L VIA MASK.
--- NOTE | 2021-03-12 10:03 | OR ---
[facility] [address] [place], [place] [address] Signed DATE OF OPERATION: 03/12/2021 SURGEON: Aysha Burroughs MD PREOPERATIVE DIAGNOSES: 1. Right subclavian sois-A-gskxhpfd. 2. History of rectal cancer (September 2019). POSTOPERATIVE DIAGNOSES: 1. Right subclavian jvti-W-xtvkiclu. 2. History of rectal cancer (September 2019). PROCEDURE: Removal of right subclavian jssv-A-arldypir. ESTIMATED BLOOD LOSS: None. INDICATIONS: Herlinda is a 71-year-old female, who was diagnosed and treated for her rectal cancer in September of 2019. She is now finished all her chemotherapy and radiation therapy. She has also finished her abdominoperineal resection with muscle flap. She was asked to come back and have her bgyv-U-haqdllmh removed by her oncologist. I met with Herlinda and her in the office. We reviewed the nature of the port catheter. We reviewed the expected intraop and postop course. They understand there is risk including, but not limited to bleeding, infection, scarring, change in contour of the skin, air embolization, catheter embolization and other unforeseen comorbidities. She had expressed understanding and wished to proceed. DESCRIPTION OF PROCEDURE: I met with Herlinda this morning in our preop area. We both agreed on right subclavian abrq-M-maquyjxr. After this, she was taken into the operating room and placed in the supine position under monitored anesthesia care with propofol infusion. She was then prepped and draped in the usual sterile fashion. Local anesthetic was injected around and underneath the zccg-M-lkklwyjl. We used her previous oblique incision and opened that up sharply with a 15 blade knife. This was carried down and around the port catheter with the help of the cautery. The entire pseudocapsule was removed along with the catheter. #2-0 pursestring suture was placed around the catheter and the catheter was withdrawn and the suture was tied down to close the catheter tunnel. The entire catheter was easily removed and we could easily see the radiographic tip on the end of Electronically Signed By: AYSHA BURROUGHS MD 03/12/21 1003 PATIENT NAME: HERLINDA RUBIN JOSE CRUZ OPERATIVE REPORT DATE OF : 54 REPORT #: [id number] PHYSICIAN: AYSHA BURROUGHS MD PCP: YAMILKA SAMANIEGO MD REPORT IS CONFIDENTIAL AND NOT TO BE RELEASED WITHOUT AUTHORIZATION [facility] [address] [place] [id number] Signed the catheter. The wound was then irrigated and suctioned out until clear. The dermis was reapproximated with interrupted 3-0 subcuticular Monocryl sutures. The skin edges were reapproximated with a running 5-0 fast absorbing plain gut suture. Dry gauze and tape were then applied. Herlinda was then transferred over to her hospital bed and taken into recovery room in stable condition. MD TIGRE Prince/LYNDSEY /[id number] cc: MD Aysha Slater MD [facility] Copies: TED GARDNER MD, ANDREW L MD ~ Electronically Signed By: AYSHA BURROUGHS MD 03/12/21 1003 PATIENT NAME: HERLINDA RUBIN JOSE CRUZ OPERATIVE REPORT DATE OF : 54 REPORT #: [id number] PHYSICIAN: AYSHA BURROUGHS MD PCP: YAMILKA SAMANIEGO MD REPORT IS CONFIDENTIAL AND NOT TO BE RELEASED WITHOUT AUTHORIZATION
== END 2021-03-12 08:47 | disposition home or self-care (01) ==
LOC: DS 06:25
PROVIDERS: ATTEND Colon & Rectal Surgery
PROC: 05PY03Z Removal of Infusion Device from Upper Vein, Open Approach (ICD-10-PCS; principal; 2021-03-12 06:45)
DX: Z45.2 Encounter for adjustment and management of vascular access device (principal); J45.909 Unspecified asthma, uncomplicated; K21.9 Gastro-esophageal reflux disease without esophagitis; I12.9 Hypertensive chronic kidney disease with stage 1 through stage 4 chronic kidney disease, or unspecified chronic kidney disease; N18.30 Chronic kidney disease, stage 3 unspecified; E78.5 Hyperlipidemia, unspecified; Z85.048 Personal history of other malignant neoplasm of rectum, rectosigmoid junction, and anus; Z92.21 Personal history of antineoplastic chemotherapy; Z92.3 Personal history of irradiation
CPT/HCPCS: 00532; J0690; J1644; J2001; J2405; J2704; J3010; J7121

== ENCOUNTER 2021-04-14 09:30 | Day surgery (SDC) | payer MEDICARE, OTHER ==
[~2021-04-14] VITALS: Ht 157.5 cm; Wt 65.9 kg
--- NOTE | 2021-04-15 07:56 | OR ---
[facility] [address] [place], [place] [address] Signed DATE OF OPERATION: 04/14/2021 SURGEON: Aysha Burroughs MD PREOPERATIVE DIAGNOSES: 1. Rectal cancer September 2019. 2. Abdominoperineal resection and muscle flap April 2020. 3. Personal history of colonic polyps. 4. Diverticulosis. 5. Anemia with hemoglobin of 10.3 and mean cell volume of 98. 6. Right lower quadrant colostomy. POSTOPERATIVE DIAGNOSES: 1. 5 mm polyp at 15 cm. 2. 5 mm polyp at 20 cm. 3. Minimal left colon diverticulosis. 4. Right lower quadrant colostomy. PROCEDURE: Colonoscopy with hot biopsy. ESTIMATED BLOOD LOSS: None. INDICATIONS: Herlinda is a 71-year-old female, who I met in early 2019. I did a colonoscopy in September 2019 and she had a low-lying rectal cancer. She also had adenomatous polyps in the rectum. She also had left-sided diverticulosis. She went through her neoadjuvant chemotherapy and radiation therapy. Her preoperative CEA level was 9.8. She then completed her abdominoperineal resection with a muscle flap in April of 2020. Overall, she has done very well. She is feeling much better. She started to gain some of her weight back. She returns now for a followup colonoscopy. Her colostomy is in the right lower quadrant of the abdominal wall. She says she does quite well with that. In the office, I had given her a pamphlet on colonoscopy. She recalls the test quite nicely. There is risk including, but not limited to gas bloating, crampy abdominal pain, bleeding, perforation requiring surgery, and missed diagnosis. We also discussed the need for monitored anesthesia care given her advanced age and her daily need for hydrocodone. We know from her 1st colonoscopy, she took a significant amount of Versed and fentanyl. She had expressed understanding and wished to proceed. Electronically Signed By: AYSHA BURROUGHS MD 04/15/21 0756 PATIENT NAME: HERLINDA RUBIN OPERATIVE REPORT DATE OF : 54 REPORT #: [id number] PHYSICIAN: AYSHA BURROUGHS MD PCP: YAMILKA SAMANIEGO MD REPORT IS CONFIDENTIAL AND NOT TO BE RELEASED WITHOUT AUTHORIZATION [facility] [address] [place], [place] [address] Signed PROCEDURE NOTE: Herlinda was taken into our endoscopy suite. We initially placed her in the left lateral decubitus position while she was awake. We examined the area of the perineum very carefully. She has healed her surgical scar very nicely. She has had an excellent cosmetic result. No evidence of any visible or palpable recurrence. After this, Herlinda was rotated into the supine position. She was then placed under monitored anesthesia care with propofol per our nurse coil winder strap. She has a one-piece ostomy appliance and therefore she had us remove the entire appliance. At the end of the case, then we gave her a new two-piece appliance. The colostomy site is quite healthy in the right lower quadrant of the abdominal wall. The mucosa is quite healthy as well. On digital exam, I cannot appreciate any evidence of parastomal hernia. The fascial defect is not strictured. The adult colonoscope was then introduced and advanced very carefully under direct visualization of camera into the cecum itself. She had a very good bowel prep. She had a little bit of liquid stool in her cecum and when we suctioned it out, we created two small suction bites associated with the appendiceal orifice on her photograph. The scope was then slowly withdrawn. The length of the colon is around 75 cm. She does have a few diverticula in the left colon. They were moderate in size, few in number, and scattered about. She had two small 5 mm polyps in that left colon which we removed with the help of hot biopsy forceps. We very carefully brought the colonoscope all the way to the end of the colostomy and it is quite healthy without evidence of any recurrence of cancer. We also took a picture of her ostomy site as well. After this, a new ostomy appliance was applied. Herlinda was then awakened from her anesthesia and taken into recovery room in stable condition. Aysha Burroughs MD ALB/MODL /[id number] cc: Mathew Calderon MD, PH.D. MD Aysha Lima MD Dr. Luay Ailabouni Electronically Signed By: AYSHA BURROUGHS MD 04/15/21 0756 PATIENT NAME: HERLINDA RUBIN [facility] OPERATIVE REPORT DATE OF : 54 REPORT #: [id number] PHYSICIAN: AYSHA BURROUGHS MD PCP: YAMILKA SAMANIEGO MD REPORT IS CONFIDENTIAL AND NOT TO BE RELEASED WITHOUT AUTHORIZATION [address] [address] Signed MD Em Berg MD Copies: MATHEW CALDERON ROBERT C MD BOWER, ANDREW L MD WINDE, JAMES MD FLEMING,EM Reid MD ~ Electronically Signed By: AYSHA BURROUGHS MD 04/15/21 0756 PATIENT NAME: HERLINDA RUBIN JOSE CRUZ OPERATIVE REPORT DATE OF : 54 REPORT #: [id number] PHYSICIAN: AYSHA BURROUHGS MD PCP: YAMILKA SAMANIEGO MD REPORT IS CONFIDENTIAL AND NOT TO BE RELEASED WITHOUT AUTHORIZATION
== END 2021-04-14 16:15 | disposition home or self-care (01) ==
LOC: DS 09:30 → OPS 09:30
PROVIDERS: ATTEND Colon & Rectal Surgery
PROC: 0DBM8ZX Excision of Descending Colon, Via Natural or Artificial Opening Endoscopic, Diagnostic (ICD-10-PCS; principal; 2021-04-14 10:15)
DX: D12.4 Benign neoplasm of descending colon (principal); K57.30 Diverticulosis of large intestine without perforation or abscess without bleeding; Z85.048 Personal history of other malignant neoplasm of rectum, rectosigmoid junction, and anus; D64.9 Anemia, unspecified; I12.9 Hypertensive chronic kidney disease with stage 1 through stage 4 chronic kidney disease, or unspecified chronic kidney disease; N18.30 Chronic kidney disease, stage 3 unspecified; J45.909 Unspecified asthma, uncomplicated; K21.9 Gastro-esophageal reflux disease without esophagitis; Z88.6 Allergy status to analgesic agent; Z91.048 Other nonmedicinal substance allergy status; Z93.3 Colostomy status
CPT/HCPCS: 88305; J0360; J2405; J2550; J2704; J7121

== ENCOUNTER 2024-04-16 17:45 | Emergency (ER) | payer MEDICARE, OTHER ==
[~2024-04-16] VITALS: Ht 157.5 cm; Wt 70.1 kg
[2024-04-16] MEDS ORDERED: IRON236 MG PO (18:23)
[2024-04-16 19:03] LABS: ALBUMIN/GLOBULIN RATIO 0.71 (1.1-2.4); ANION GAP 12.4 (7-21); BILIRUBIN, TOTAL 0.3 ng/dL (0.2-1.0); BUN/CREATININE RATIO 12.69 (6.0-28.6); CALCIUM 8.7 mg/dL (8.5-10.1); CREATININE, SERUM 2.6 mg/dL (0.55-1.02); POTASSIUM 4.4 mmol/L (3.5-5.1); PROTEIN, TOTAL 7.2 g/dL (6.4-8.2)
[2024-04-16 19:04] LABS: BASOPHILS 1.3 % (0-2); EOSINOPHILS 5.3 % (0-6); HEMOGLOBIN 9.7 g/dL (12.0-18.0); LYMPHOCYTES 16.3 % (24-44); MCH 31.4 (27-36); MCHC 33.3 g/dl (30-36); MCV 94.4 fl (81-99); MONOCYTES 11.1 % (0-12); PLATELET COUNT 270 K/uL (140-440); RBC 3.08 M/ul (4.3-5.7); RDW 16.7 (10.5-15.0)
[2024-04-16 19:28] LABS: ABO O
[2024-04-16 19:29] LABS: ANTIBODY SCREEN NEGATIVE; RH POSITIVE
[2024-04-16] MEDS ORDERED: FERROUS SULFAT325 MG PO (19:42)
[2024-04-16] MEDS ORDERED: VITAMIN C500 M1 PO (19:42)
[2024-04-16 20:00] VITALS: BP 139/66
== END 2024-04-16 20:04 | disposition home or self-care (01) ==
LOC: ED 17:45
PROVIDERS: Emergency Medicine
DX: C20 Malignant neoplasm of rectum (principal); D63.0 Anemia in neoplastic disease; I12.9 Hypertensive chronic kidney disease with stage 1 through stage 4 chronic kidney disease, or unspecified chronic kidney disease; N18.4 Chronic kidney disease, stage 4 (severe); Z91.09 Other allergy status, other than to drugs and biological substances; Z88.6 Allergy status to analgesic agent; Z79.899 Other long term (current) drug therapy
CPT/HCPCS: 36415; 80053; 85025; 86850; 86900; 86901; 99283